=== PATIENT | male | born 1950 | race Caucasian/White ===

== ENCOUNTER 2022-04-29 17:05 | Emergency (ER) | payer MEDICARE, OTHER, SELFPAY ==
[2022-04-29 17:19] VITALS: BP 177/71; PULSE 77; RESP 16; TEMP 36.1; O2SAT 99; BMI 23.8
--- NOTE | 2022-04-29 17:31 | DI.CT.S_ITS ---
PROCEDURE: CT ABDOMEN PELVIS W CON INDICATIONS: LUQ/LLQ abd pain after injury 12 days ago TECHNIQUE: After the administration of IV contrast, axial sections were acquired from the lung bases to the pubic symphysis. Coronal and sagittal reformats were performed. For radiation dose reduction, the following was used: automated exposure control, adjustment of mA and/or kV according to patient size. COMPARISON: None. FINDINGS: Image quality: Excellent. Lung bases: Unremarkable. Heart: No significant findings. ABDOMEN: Liver: Small hypodensity near the gallbladder which has the appearance of a benign cyst. Gallbladder: Not distended. Biliary ducts: Unremarkable. Pancreas: Unremarkable. Spleen: No splenomegaly. Adrenal Glands: Unremarkable. Kidneys and Ureters: No hydronephrosis. Stomach and Bowel: No small bowel obstruction. There is prominent stool in the colon. A few colonic diverticuli. No diverticulitis identified. The appendix may be partially visualized and has air within its lumen. Stomach is not distended. Peritoneum: No abnormal intraperitoneal fluid. No free air. Ventral Wall: No hernia. Abdominal Nodes: No retroperitoneal or mesenteric adenopathy by size criteria. Vessels: Aorta and inferior vena cava are normal in size. Circumferential calcified atherosclerotic plaque. PELVIS: Pelvic Organs: Prostatomegaly. Vasectomy clips. Bladder: Possible bladder wall thickening. Irregularity at the dome of the bladder which could represent a diverticulum, (5/42). Pelvic Nodes: No enlarged lymph nodes. Miscellaneous: No inguinal hernias are seen. Bones: No compression fracture. No suspicious lesion. Multilevel DDD. IMPRESSION: 1. Prominent stool in the colon. This raises the possibility of constipation. 2. No free fluid is identified. No small bowel obstruction. 3. The appendix is likely partially visualized and does not appear dilated. 4. No hydronephrosis. 5. The bladder wall may be mildly thickened. Suspect bladder diverticulum at the dome. Prostatomegaly. Dictated by: Leeroy House M.D. on 04/29/2022 at 18:52 Approved by: Leeroy House M.D. on 04/29/2022 at 18:58
--- NOTE | 2022-04-29 17:45 | ED.LOWEXIN ---
HPI - Extremity Injury (Lower) <GEO Mueller - Last Filed: 04/29/22 20:35> General Chief Complaint: Extremity Injury, Lower Stated Complaint: Pain from hit, moving around body Time Seen by Provider: 04/29/22 17:39 Source: patient Mode of arrival: Ambulatory History of Present Illness HPI Narrative: This is a 71-year-old male who presents to the emergency department complaining of left-sided abdominal pain 12 days after hurt his left upper abdomen while leaning into his boat working on something. Patient endorses a history of peripheral neuropathy but states that he is had muscle cramps in his left upper thigh last night and it made it difficult for him to sleep. He states that he was lying on a ellison to his boat and he slid which had a protrusion which hurt his left upper abdomen. Patient also endorses low back pain with difficulty sleeping due to his restless left leg. He also endorses history of restless legs and neuropathy in the past. Patient denies any fever, nausea vomiting, worsening abdominal pain, denies any blood in his urine, stool, or other. Patient denies any weakness, is ambulatory, denies any significant abdominal pain, states that his pain travels into his left leg, it is dull, denies it being sharp but has difficulty explaining how it feels. Related Data Previous Rx's Medication Instructions Recorded ibuprofen 800 mg tablet 800 mg PO Q8H PRN pain #30 tabs 04/29/22 lidocaine 5 % topical patch 1 patch topical DAILY PRN pain #15 04/29/22 ea magnesium citrate 150 ml PO DAILY PRN constipation 04/29/22 #296 mL methocarbamol 500 mg tablet 500 mg PO TID PRN muscle spasm #14 04/29/22 tabs Allergies Allergy/AdvReac Type Severity Reaction Status Date / Time No Known Drug Allergies Allergy Verified 04/29/22 17:27 Review of Systems <GEO Mueller - Last Filed: 04/29/22 20:35> Review of Systems Narrative: Review of systems is negative for acute abnormalities unless otherwise noted in HPI Patient History <GEO Mueller - Last Filed: 04/29/22 20:35> tobacco type: vaping Substance Use Type: marijuana Exam <GEO Mueller - Last Filed: 04/29/22 20:35> Narrative Exam Narrative: Reviewed vitals signs and nursing notes. General: cooperative, comfortable, in no acute distress, well groomed HEENT: symmetrical facial expressions, moist mucous membranes Cardiovascular: regular rate and rhythm, no peripheral edema, warm extremities Respiratory: normal effort, able to speak in complete sentences, without wheezing, stridor, or abnormal breath sounds. No retractions or tachypnea. Symmetrical chest rise and fall, clear breath sounds throughout GI: abdomen soft, nontender to palpation, nondistended, without masses, rebound tenderness or exquisite tenderness with exam. No ecchymosis or hematoma MSK: moves all extremities, neurovascularly intact, no weakness, normal tone patient is ambulatory with steady gait, no weakness Skin: brisk capillary refill, without pallor or erythema Neuro: normal speech and cognition, A&O x3, ambulatory, clear speech Psych: mental status is grossly normal, congruent mood, normal affect, pleasant and cooperative Initial Vital Signs Initial Vital Signs: Vital Signs Temperature 97 F L 04/29/22 17:19 Pulse Rate 77 04/29/22 17:19 Respiratory Rate 16 04/29/22 17:19 Blood Pressure 177/71 H 04/29/22 17:19 Pulse Oximetry 99 04/29/22 17:19 Oxygen Delivery Method 04/29/22 17:19 <Yamini Jesus MD - Last Filed: 04/30/22 07:26> Initial Vital Signs Initial Vital Signs: Vital Signs Temperature 97 F L 04/29/22 17:19 Pulse Rate 77 04/29/22 17:19 Respiratory Rate 16 04/29/22 17:19 Blood Pressure 177/71 H 04/29/22 17:19 Pulse Oximetry 99 04/29/22 17:19 Oxygen Delivery Method 04/29/22 17:19 Course <GEO Mueller - Last Filed: 04/29/22 20:35> Orders Ordered: ED Orders 04/29/22 17:31 CT abdomen pelvis w con Stat EKG-12 Lead Stat 04/29/22 17:40 Complete Blood Count AUTO DIFF Stat Comprehensive Metabolic Panel Stat Lipase Stat Vital Signs Vital signs: Vital Signs - 8 hr 04/29/22 17:19 04/29/22 19:48 Temperature 97 F L Pulse Rate 77 64 Respiratory Rate 16 16 Blood Pressure 177/71 H 165/76 H Pulse Oximetry 99 Oxygen Delivery Method Room Air Room Air <Yamini Jesus MD - Last Filed: 04/30/22 07:26> Orders Ordered: ED Orders 04/29/22 17:31 CT abdomen pelvis w con Stat EKG-12 Lead Stat 04/29/22 17:40 Complete Blood Count AUTO DIFF Stat Comprehensive Metabolic Panel Stat Lipase Stat Vital Signs Vital signs: Vital Signs - 8 hr 04/29/22 17:19 04/29/22 19:48 Temperature 97 F L Pulse Rate 77 64 Respiratory Rate 16 16 Blood Pressure 177/71 H 165/76 H Pulse Oximetry 99 Oxygen Delivery Method Room Air Room Air MDM - Extremity Injury (Lower) <GEO Mueller - Last Filed: 04/29/22 20:35> Lab Data Result diagrams: 04/29/22 17:40 04/29/22 17:40 Labs: Lab Results 04/29/22 04/29/22 Range/Units 17:40 17:40 WBC 6.7 (4.5-11.0) X10^3/uL RBC 4.95 (4.5-5.9) X10^6/uL Hgb 14.2 (13.5-17.5) g/dL Hct 41.0 (41-53) % MCV 83.0 (80-100) fL MCH 28.7 (26-34) PG MCHC 34.6 (30-36) % RDW 13.8 (11.6-14.8) % Plt Count 251 (150-400) X10^3/uL Neut % (Auto) 56.5 (50-75) % Lymph % (Auto) 28.0 (25-40) % Archer % (Auto) 11.1 (3-14) % Eos % (Auto) 3.5 (2-4) % Baso % (Auto) 0.9 (0-2) % Neut # (Auto) 3800 (5226-7801) /uL Lymph # (Auto) 1900 (7111-3311) /uL Archer # (Auto) 700 (0-900) /uL Eos # (Auto) 200 (0-450) /uL Baso # (Auto) 100 (0-100) /uL Sodium 137 (137-145) mmol/L Potassium 4.3 (3.4-5.1) mmol/L Chloride 102 (98-107) mmol/L Carbon Dioxide 29 (22-32) mmol/L BUN 16 (9-20) mg/dL Creatinine 0.91 (0.66-1.25) mg/dL Estimated GFR > 60 (>60) mL/min BUN/Creatinine Ratio 17.6 (6-22) Glucose 85 (80-110) mg/dL Calcium 9.7 (8.4-10.2) mg/dL Total Bilirubin 0.7 (0.2-1.3) mg/dL AST 26 (17-59) IU/L ALT 17 (<50) IU/L Alkaline Phosphatase 78 (38-126) U/L Total Protein 8.0 (6.3-8.2) g/dL Albumin 4.6 (3.5-5.0) g/dL Globulin 3.4 (1.7-4.1) g/dL Albumin/Globulin Ratio 1.4 (1.0-2.8) Lipase 30 (23-300) U/L Urine Dip Bedside Urine Glucose Negative Bedside Urine Bilirubin - Negative Bedside Urine Ketone +/- 5 Urine Specific [place] 1.015 Bedside Urine Occult Blood - Negative Bedside Urine pH 6.0 Bedside Urine Protein - Negative Bedside Urine Urobilinogen - Negative Bedside Urine Nitrite - Negative Bedside Urine Leukocytes - Negative Esterase Imaging Data CT scan - abdomen/pelvis: Radiologist's Impression: PROCEDURE:? CT ABDOMEN PELVIS W CON ? INDICATIONS:? LUQ/LLQ abd pain after injury 12 days ago ? TECHNIQUE:? After the administration of IV contrast, axial sections were acquired from the lung bases to the pubic symphysis.? Coronal and sagittal reformats were performed.? For radiation dose reduction, the following was used:? automated exposure control, adjustment of mA and/or kV according to patient size. ? COMPARISON:? None. ? FINDINGS:? Image quality:? Excellent.? ? Lung bases:? Unremarkable.? ? Heart:? No significant findings. ? ? ABDOMEN: Liver:? Small hypodensity near the gallbladder which has the appearance of a benign cyst. ?? Gallbladder:? Not distended.? ? Biliary ducts:? Unremarkable.? ? Pancreas:? Unremarkable.? ? Spleen:? No splenomegaly.? ? Adrenal Glands:? Unremarkable.? ? Kidneys and Ureters:? No hydronephrosis. ? Stomach and Bowel:? No small bowel obstruction.? There is prominent stool in the colon.? A few colonic diverticuli.? No diverticulitis identified.? The appendix may be partially visualized and has air within its lumen.? Stomach is not distended. Peritoneum:? No abnormal intraperitoneal fluid.? No free air.? ? Ventral Wall: ? No hernia.? Abdominal Nodes:? No retroperitoneal or mesenteric adenopathy by size criteria.? Vessels:? Aorta and inferior vena cava are normal in size.? Circumferential calcified atherosclerotic plaque. ? PELVIS: Pelvic Organs:? Prostatomegaly.? Vasectomy clips.? Bladder:? Possible bladder wall thickening.? Irregularity at the dome of the bladder which could represent a diverticulum, ().? ? Pelvic Nodes: No enlarged lymph nodes.? Miscellaneous: No inguinal hernias are seen. ? ? ? Bones:? No compression fracture.? No suspicious lesion.? Multilevel DDD. ? ? IMPRESSION:? 1. Prominent stool in the colon.? This raises the possibility of constipation. ? 2. No free fluid is identified.? No small bowel obstruction. ? 3. The appendix is likely partially visualized and does not appear dilated. ? 4. No hydronephrosis. ? 5. The bladder wall may be mildly thickened.? Suspect bladder diverticulum at the dome.? Prostatomegaly.? ? Dictated by: Leeroy House M.D. on 04/29/2022 at 18:52 ? ? Approved by: Leeroy House M.D. on 04/29/2022 at 18:58 ? [facility] Narrative Medical decision making narrative: This is a 71-year-old male presents to the emergency department for left leg pain after he had a traumatic injury on his boat [address] abdomen and pelvis was obtained due to the abdominal injury he sustained 12 days ago but only shows prominent stool in the colon, no free fluid or small bowel obstruction, appendix is partially without dilation, no hydronephrosis or renal stones, bladder wall may be mildly thickened, suspect bladder diverticulum at the dome, prostatomegaly. Patient endorses history of BPH but denies any complications from this. Endorses a history of low back pain with sciatica and neuropathy in his lower extremities. CT bones shows no compression fracture or suspicious lesion, multilevel degenerative disc disease. After extensive discussion about cause to his symptom of left thigh pain, it is most likely to be sciatica without evidence muscle weakness, incontinence, cauda equina, acute vertebral fracture or malalignment, patient does not have any history of IV drug use. Opted to treat patient for low back pain with sciatica with muscle relaxers, anti-inflammatories, magnesium citrate for his constipation with MiraLax, and methocarbamol as needed for muscle spasms. Was also given a prescription of lidocaine patches. Given strict return precautions for returning. . Given history and exam, suspect likely musculoskeletal etiology, they are nontoxic appearing with no overt risk factors for epidural hematoma or abscess. No overt evidence of critical cord compression and has a nonfocal near exam. Neurovascularly intact distally, no evidence of infection, peritoneal signs, hypertensive crisis, or abdominal pain with low suspicion for AAA. No weakness, incontinence, neurovascular or sensation changes, no concerning findings for caudal equina syndrome, lumbar fracture, without paresthesia, neuropathic pain, meningeal signs and fever. This could be a herniated disk, paraspinal or other muscle strain, ligamental injury, arthritic, nephrolithiasis/pyelonephritis, epidural abscess, chronic pain, and other diagnosis? considered less likely. <Yamini Jesus MD - Last Filed: 04/30/22 07:26> Lab Data Labs: Lab Results 04/29/22 04/29/22 Range/Units 17:40 17:40 WBC 6.7 (4.5-11.0) X10^3/uL RBC 4.95 (4.5-5.9) X10^6/uL Hgb 14.2 (13.5-17.5) g/dL Hct 41.0 (41-53) % MCV 83.0 (80-100) fL MCH 28.7 (26-34) PG MCHC 34.6 (30-36) % RDW 13.8 (11.6-14.8) % Plt Count 251 (150-400) X10^3/uL Neut % (Auto) 56.5 (50-75) % Lymph % (Auto) 28.0 (25-40) % Archer % (Auto) 11.1 (3-14) % Eos % (Auto) 3.5 (2-4) % Baso % (Auto) 0.9 (0-2) % Neut # (Auto) 3800 (1061-8165) /uL Lymph # (Auto) 1900 (8293-4452) /uL Archer # (Auto) 700 (0-900) /uL Eos # (Auto) 200 (0-450) /uL Baso # (Auto) 100 (0-100) /uL Sodium 137 (137-145) mmol/L Potassium 4.3 (3.4-5.1) mmol/L Chloride 102 (98-107) mmol/L Carbon Dioxide 29 (22-32) mmol/L BUN 16 (9-20) mg/dL Creatinine 0.91 (0.66-1.25) mg/dL Estimated GFR > 60 (>60) mL/min BUN/Creatinine Ratio 17.6 (6-22) Glucose 85 (80-110) mg/dL Calcium 9.7 (8.4-10.2) mg/dL Total Bilirubin 0.7 (0.2-1.3) mg/dL AST 26 (17-59) IU/L ALT 17 (<50) IU/L Alkaline Phosphatase 78 (38-126) U/L Total Protein 8.0 (6.3-8.2) g/dL Albumin 4.6 (3.5-5.0) g/dL Globulin 3.4 (1.7-4.1) g/dL Albumin/Globulin Ratio 1.4 (1.0-2.8) Lipase 30 (23-300) U/L Urine Dip Bedside Urine Glucose Negative Bedside Urine Bilirubin - Negative Bedside Urine Ketone +/- 5 Urine Specific [place] 1.015 Bedside Urine Occult Blood - Negative Bedside Urine pH 6.0 Bedside Urine Protein - Negative Bedside Urine Urobilinogen - Negative Bedside Urine Nitrite - Negative Bedside Urine Leukocytes - Negative Esterase Discharge Plan Departure Patient Disposition: Home Clinical Impression: Degenerative disk disease Acute low back pain with sciatica Qualifiers: Back pain laterality: left Sciatica laterality: sciatica of left side Qualified Code(s): M54.42 - Lumbago with sciatica, left side Instructions: DI for Back Pain With Sciatica, DI for Muscle Spasm Activity Restrictions/Additional Instructions: *You have been diagnosed with left leg pain which is most likely irritated low back. We completed an extensive workup today wishes not show any abnormalities in your lab work, all of your organs are functioning normally. Your CT scan shows that you have moderate constipation, please continue taking MiraLax but increase it to twice a day and remember to stay hydrated. For your back pain/leg pain, these avoid over exertion, take ibuprofen 800 mg every 8 hours with food and water, you can take Tylenol in addition to this, you can take a muscle relaxer at nighttime to help with the spasms/restless symptom. Please use magnesium citrate once or 2 times to help rid your colon of the moderate constipation. I hope you start feeling better soon. Please return for any worsening, you may go to [facility] as needed if this is ongoing. Please use the walk-in clinic as needed for follow-up or for medication refills until you can get in with Dr. Flores in September. I encourage you to do physical therapy if this is helpful if your symptoms are ongoing. *What to do: *Please continue to take your regular medications as directed. [ x] New medication prescriptions sent to your pharmacy: [[facility] ] [ ] New medication written as a paper prescription [ ] No new medications given *Please follow up with your primary care provider in 2-3 days, call for an appointment. Let them know you were seen in the Emergency Department and that we asked that you be seen for follow-up. We will electronically transmit a record of today's note if your PCP is in our system *If you do not have a primary care provider please contact [phone] to establish care with one of the [facility] primary care providers. *Return to Emergency Department if you should have any new, worsening, or concerning symptoms, such as [fever greater than 101F, chills, worsening pain, persistent vomiting or other bothersome symptoms]. Prescriptions: New methocarbamol 500 mg tablet 500 mg PO TID PRN (Reason: muscle spasm) Qty: 14 0RF ibuprofen 800 mg tablet 800 mg PO Q8H PRN (Reason: pain) Qty: 30 0RF lidocaine 5 % adhesive patch,medicated 1 patch topical DAILY PRN (Reason: pain) Qty: 15 0RF Rx Instructions: leave on most painful area for up to 12 hrs magnesium citrate Solution 150 ml PO DAILY PRN (Reason: constipation) Qty: 296 0RF Referrals: Miscellaneous,Doctor[facility] [Primary Care Provider] - Visit Report Forms: Patient Portal/API <Yamini Jesus MD - Last Filed: 04/30/22 07:26> Cosign ED Attending Cosignature Attestation: I was immediately available in the department for consultation throughout this patient's visit. I agree with documentation as above. Yamini Jesus MD
--- NOTE | 2022-04-29 17:59 | PC.NURSE ---
12 days ago patient slid off [place] of boat hurting left ribs, upper abd. [place] like things may have been moving in the right direction until last night when he began to experience a sudden onset of left lower abd/groin and left leg pain Deep into the bone pain Unable to sleep or find any position of comfort. UPon waking noted some swelling in left leg which has since resolved.
[2022-04-29 18:03] LABS: Add Manual Diff / Slide Review NO; Basophils Absolute Auto 100 /uL (0-100); Basophils Percent Auto 0.9 % (0-2); Eosinophils Absolute Auto 200 /uL (0-450); Eosinophils Percent Auto 3.5 % (2-4); Hemoglobin 14.2 g/dL (13.5-17.5); Lymphocytes Absolute Auto 1900 /uL (1100-4500); Mean Corpuscular HGB Conc 34.6 % (30-36); Mean Corpuscular Hemoglobin 28.7 PG (26-34); Monocytes Absolute Auto 700 /uL (0-900); Monocytes Percent Auto 11.1 % (3-14); Neutrophils Absolute Auto 3800 /uL (1500-7000); Neutrophils Percent Auto 56.5 % (50-75); Platelet Count 251 X10^3/uL (150-400); Red Blood Cell Count 4.95 X10^6/uL (4.5-5.9); Red Cell Distribution Width 13.8 % (11.6-14.8); White Blood Cell Count 6.7 X10^3/uL (4.5-11.0)
[2022-04-29 18:19] LABS: Alanine Aminotransferase 17 IU/L (<50); Albumin 4.6 g/dL (3.5-5.0); Albumin Globulin Ratio 1.4 (1.0-2.8); Alkaline Phosphatase 78 U/L (38-126); Aspartate Aminotransferase 26 IU/L (17-59); BUN Creatinine Ratio 17.6 (6-22); Bilirubin Total 0.7 mg/dL (0.2-1.3); Blood Urea Nitrogen 16 mg/dL (9-20); Calcium 9.7 mg/dL (8.4-10.2); Carbon Dioxide 29 mmol/L (22-32); Chloride 102 mmol/L (98-107); Estimated Glomerular Filt Rate > 60 mL/min (>60); Globulin 3.4 g/dL (1.7-4.1); Glucose 85 mg/dL (80-110); HEMOLYSIS < 15 (0-50); Lipase 30 U/L (23-300); Potassium 4.3 mmol/L (3.4-5.1); Sodium 137 mmol/L (137-145)
[2022-04-29 19:48] VITALS: BP 165/76; PULSE 64; RESP 16
== END 2022-04-29 19:49 | disposition home or self-care (01) ==
PROVIDERS: Family Medicine Addiction Medicine; Emergency Provider Nurse Practitioner Critical Care Medicine
DX: M54.42 Lumbago with sciatica, left side (principal); M51.36 Other intervertebral disc degeneration, lumbar region
CPT/HCPCS: 36415; 74177; 80053; 81003; 83690; 85025; 93005; 99284; Q9967

== ENCOUNTER 2022-10-27 23:12 | Emergency (ER) | payer MEDICARE, OTHER, SELFPAY ==
[2022-10-28] VITALS (8 sets, daily range): BP systolic 149–199; BP diastolic 70–93; PULSE 79–95; RESP 18–28; TEMP 36.9; O2SAT 97–99; BMI 23.3
--- NOTE | 2022-10-28 01:29 | DI.RAD.S_ITS ---
PROCEDURE: XR CHEST 1V INDICATIONS: chest pain TECHNIQUE: One view of the chest was acquired. COMPARISON: None. FINDINGS: Surgical changes and devices: None. Lungs and pleura: Lungs are clear. No pleural effusions or pneumothorax. Mediastinum: Mediastinal contours appear normal. Heart size is normal. Bones and chest wall: No suspicious bony lesions. Overlying soft tissues appear unremarkable. IMPRESSION: 1. No acute cardiopulmonary disease. Dictated by: Shilo Moore M.D. on 10/28/2022 at 1:59 Approved by: Shilo Moore M.D. on 10/28/2022 at 2:00
--- NOTE | 2022-10-28 01:57 | ED_ITS ---
HPI - Weakness General Chief complaint: Weakness Stated complaint: light headed, skipping heart beats Time Seen by Provider: 10/27/22 23:43 Source: patient Mode of arrival: Ambulatory History of Present Illness HPI Narrative: 71-year-old male smoker with history of hypertension and hyperlipidemia presents with his in the chief complaint of palpitations that were rather bothersome that seemed to start soon after switching to a new nicotine based vaping oil. He states that he seems to be getting better but had a day and a half of palpitations and episodes of increased heart rate that made him feel very uneasy. He states that when these palpitations are occurring he feels some discomfort in his chest but denies any exertional component and states that he and his are quite active and he is had no change in his ability to tolerate exercise and has had no presence of symptoms with exertion. He is not dizzy nor weak or lightheaded. He denies any fever or chills. He has no nausea, vomiting or diarrhea Related Data Home Medications Medication Instructions Recorded Confirmed atorvastatin 10 mg tablet 10 mg PO DAILY 09/25/22 09/25/22 doxycycline hyclate 100 mg tablet 100 mg PO DAILY 09/25/22 09/25/22 lisinopril 10 mg tablet 10 mg PO DAILY 09/25/22 09/25/22 pantoprazole 20 mg tablet,delayed 20 mg PO DAILY 09/25/22 09/25/22 release Allergies Allergy/AdvReac Type Severity Reaction Status Date / Time No Known Drug Allergies Allergy Verified 09/25/22 16:41 Review of Systems Review of Systems Narrative: GENERAL: Denies chills, fatigue, malaise, fever, sweats. HEENT: Denies sinus pain, ear pain, sore throat, difficulty swallowing, dizziness. RESPIRATORY: Denies dyspnea, cough, wheezing, hemoptysis, sputum. CARDIOVASCULAR: See HPI GASTROINTESTINAL: Denies nausea, vomiting, abdominal pain, diarrhea, con stipation, melena. : Denies dysuria, frequency, incontinence, hematuria, urinary retention. MUSCULOSKELETAL: denies weakness, joint pain, or bony pain SKIN: Denies rash, skin lesions, or other NEUROLOGIC: Denies weakness, headache, numbness, change in speech, confusion, seizures, incoordination. PSYCHIATRIC: No concerning psychosocial issues. 12 point review of systems is negative except for those stated above Patient History Medical History Bilateral foot pain Cataracts, bilateral Fractures Hearing loss (~1998) HTN (hypertension) Hyperlipidemia Neuroma of foot Numbness and tingling of both feet Rosacea (~2011) Vision disorder Surgical History Anesthesia History of colonoscopy History of endoscopy History of inguinal hernia repair (~1978) Family History Father Liver cancer tobacco type: vaping Substance Use Type: marijuana Exam Narrative Exam Narrative: GENERAL: [71] year old patient appears stated age. Well-developed patient, in mild distress. HEAD: Atraumatic. Normocephalic. EYES: Pupils equal round and reactive. Extraocular motions intact. No scleral icterus. No injection or drainage. ENT: Nose without bleeding, purulent drainage. Throat without erythema, tonsillar hypertrophy or exudate. Airway patent. NECK: Trachea midline. Non tender CARDIOVASCULAR: Regular rate and rhythm without murmurs, gallops, or rubs. RESPIRATORY: Clear to auscultation. Breath sounds equal bilaterally. No wheezes, rales, or rhonchi. GASTROINTESTINAL: Abdomen soft, non-tender, nondistended. EXTREMITIES: No edema or joint tenderness. BACK: Nontender without deformity or crepitance. No flank tenderness. NEURO: AOx3. SKIN: No rash or erythema of visible areas Initial Vital Signs Initial Vital Signs: Vital Signs Temperature 98.4 F 10/28/22 00:18 Pulse Rate 92 H 10/28/22 00:18 Respiratory Rate 18 10/28/22 00:18 Blood Pressure 199/93 H 10/28/22 00:18 Pulse Oximetry 98 10/28/22 00:18 Oxygen Delivery Method Room Air 10/28/22 00:18 Scores HEART Score Heart Score history: Slightly Suspicious Heart Score EKG: Normal Heart Score Age: > or = 65 years old Heart Score risk factors: No known risk factors Heart Score troponin: < or = to normal limit Heart Score Total: 2 Course Orders Ordered: ED Orders 10/28/22 01:29 XR chest 1V Stat COVID19 -Nasal RAPID/Pre-Proc Stat Complete Blood Count AUTO DIFF Stat Comprehensive Metabolic Panel Stat Lipase Stat Magnesium Stat Troponin & CK Cardiac Panel Stat EKG-12 Lead Stat Vital Signs Vital signs: Vital Signs - 8 hr 10/28/22 00:18 Temperature 98.4 F Pulse Rate 92 H Respiratory Rate 18 Blood Pressure 199/93 H Pulse Oximetry 98 Oxygen Delivery Method Room Air MDM - Weakness Lab Data 10/28/22 01:50 10/28/22 01:50 Labs: Lab Results 10/28/22 10/28/22 Range/Units 01:50 01:50 WBC 9.6 (4.5-11.0) X10^3/uL RBC 4.65 (4.5-5.9) X10^6/uL Hgb 13.0 L (13.5-17.5) g/dL Hct 38.6 L (41-53) % MCV 83.2 (80-100) fL MCH 28.0 (26-34) PG MCHC 33.7 (30-36) % RDW 13.8 (11.6-14.8) % Plt Count 249 (150-400) X10^3/uL Neut % (Auto) 73.7 (50-75) % Lymph % (Auto) 16.4 L (25-40) % Russell % (Auto) 6.5 (3-14) % Eos % (Auto) 1.8 L (2-4) % Baso % (Auto) 1.6 (0-2) % Neut # (Auto) 7100 H (9115-2107) /uL Lymph # (Auto) 1600 (9885-8010) /uL Russell # (Auto) 600 (0-900) /uL Eos # (Auto) 200 (0-450) /uL Baso # (Auto) 200 H (0-100) /uL Sodium 137 (137-145) mmol/L Potassium 4.3 (3.4-5.1) mmol/L Chloride 105 (98-107) mmol/L Carbon Dioxide 25 (22-32) mmol/L BUN 19 (9-20) mg/dL Creatinine 0.81 (0.66-1.25) mg/dL Estimated GFR > 60 (>60) mL/min BUN/Creatinine Ratio 23.5 H (6-22) Glucose 93 (80-110) mg/dL Calcium 9.0 (8.4-10.2) mg/dL Magnesium 1.9 (1.6-2.3) mg/dL Total Bilirubin 0.4 (0.2-1.3) mg/dL AST 30 (17-59) IU/L ALT 25 (<50) IU/L Alkaline Phosphatase 86 (38-126) U/L Total Creatine Kinase 96 (55-170) U/L CK-MB (CK-2) TNP CK-MB (CK-2) Rel Index TNP Troponin I < 0.012 (0.01-0.034) ng/mL Total Protein 7.0 (6.3-8.2) g/dL Albumin 4.0 (3.5-5.0) g/dL Globulin 3.0 (1.7-4.1) g/dL Albumin/Globulin Ratio 1.3 (1.0-2.8) Lipase 68 (23-300) U/L MDM Narrative Medical decision making narrative: CC: 71-year-old male with palpitations after a new nicotine based vapes oil Complicating co-morbidities: Age, hypertension and hyperlipidemia Data collected from: Patient Medical records reviewed: Prior notes reviewed in our EMR Differential considered, but not limited to: Palpitations due to PVCs, SVT, AFib versus cardiac ischemia versus other Exam documented above, pertinent findings include: Heart rate regular, no labored breathing, clear lung sounds Lab Test results independently reviewed as above. Pertinent findings: Independently reviewed EKG as above Imaging studies independently reviewed: Chest x-ray clear Scores Used: HEART Re-evaluations: Patient with only the occasional PVC during the duration of the visit. Discussion: Patient complains of skipping beats and palpitations. He is found to have the occasional PVC over the duration of his visit. No significant abnormalities in the blood work that would require a specific or immediate intervention. No tachyarrhythmias that require specific treatment or inte rvention. Patient safe and appropriate for discharge and close follow-up Disposition: see below, along with detailed discharge instructions that have been reviewed with patient as well as indications for ED re-evaluation and additional outpatient follow up Discharge Plan Departure Patient Disposition: Home Clinical Impression: HTN (hypertension), History of palpitations Instructions: High Blood Pressure, DI for Palpitations Activity Restrictions/Additional Instructions: *You have been diagnosed with [palpitations and hypertension ] *What to do: *Please continue to take your regular medications as directed. *Please follow up with your primary care provider in 2-3 days, call for an appointment. Let them know you were seen in the Emergency Department and that we ask that you be seen in follow up. We will electronically transmit a record of today's note if your PCP is in our system *If you do not have a primary care provider please contact the [facility] Resource line at [phone]. They will ask some questions about your medical history and help get you set up with a doctor in the community. *Return to Emergency Department if you should have any new, worsening or concerning symptoms, such as [fever greater than 101 F, shaking chills, worsening pain, persistent vomiting or other bothersome symptoms] Prescriptions: No Action pantoprazole 20 mg tablet,delayed release (DR/EC) 20 mg PO DAILY atorvastatin 10 mg tablet 10 mg PO DAILY lisinopril 10 mg tablet 10 mg PO DAILY doxycycline hyclate 100 mg tablet 100 mg PO DAILY Referrals: Cachorro Murguia DO [Primary Care Provider] - Stand Alone Forms: Patient Portal/API
[2022-10-28 02:10] LABS: Add Manual Diff / Slide Review NO; Basophils Absolute Auto 200 /uL (0-100); Basophils Percent Auto 1.6 % (0-2); Eosinophils Absolute Auto 200 /uL (0-450); Eosinophils Percent Auto 1.8 % (2-4); Hematocrit 38.6 % (41-53); Lymphocytes Absolute Auto 1600 /uL (1100-4500); Lymphocytes Percent Auto 16.4 % (25-40); Mean Corpuscular HGB Conc 33.7 % (30-36); Mean Corpuscular Volume 83.2 fL (80-100); Monocytes Absolute Auto 600 /uL (0-900); Monocytes Percent Auto 6.5 % (3-14); Neutrophils Absolute Auto 7100 /uL (1500-7000); Neutrophils Percent Auto 73.7 % (50-75); Platelet Count 249 X10^3/uL (150-400); Red Blood Cell Count 4.65 X10^6/uL (4.5-5.9); Red Cell Distribution Width 13.8 % (11.6-14.8); White Blood Cell Count 9.6 X10^3/uL (4.5-11.0)
[2022-10-28 02:20] LABS: Alanine Aminotransferase 25 IU/L (<50); Albumin Globulin Ratio 1.3 (1.0-2.8); Alkaline Phosphatase 86 U/L (38-126); Aspartate Aminotransferase 30 IU/L (17-59); BUN Creatinine Ratio 23.5 (6-22); Bilirubin Total 0.4 mg/dL (0.2-1.3); Blood Urea Nitrogen 19 mg/dL (9-20); Carbon Dioxide 25 mmol/L (22-32); Chloride 105 mmol/L (98-107); Creatine Kinase 96 U/L (55-170); Estimated Glomerular Filt Rate > 60 mL/min (>60); Glucose 93 mg/dL (80-110); HEMOLYSIS 27 (0-50); Lipase 68 U/L (23-300); Magnesium 1.9 mg/dL (1.6-2.3); Potassium 4.3 mmol/L (3.4-5.1); Sodium 137 mmol/L (137-145)
[2022-10-28 02:31] LABS: Troponin I < 0.012 ng/mL (0.01-0.034)
== END 2022-10-28 02:59 | disposition home or self-care (01) ==
PROVIDERS: Emergency Provider Emergency Medicine; PCP Family Medicine
DX: I10 Essential (primary) hypertension (principal); R00.2 Palpitations; R07.9 Chest pain, unspecified
CPT/HCPCS: 36415; 71045; 80053; 82550; 83690; 83735; 84484; 85025; 93005; 99283; 99284

== ENCOUNTER → 2022-10-28 15:33 | Outpatient (CLI) | payer MEDICARE, OTHER, SELFPAY ==
[2022-10-28 16:06] LABS: Add Manual Diff / Slide Review NO; Basophils Absolute Auto 0 /uL (0-100); Basophils Percent Auto 0.4 % (0-2); Eosinophils Absolute Auto 100 /uL (0-450); Eosinophils Percent Auto 0.8 % (2-4); Hematocrit 40.3 % (41-53); Lymphocytes Absolute Auto 1900 /uL (1100-4500); Lymphocytes Percent Auto 21.2 % (25-40); Mean Corpuscular HGB Conc 34.6 % (30-36); Mean Corpuscular Hemoglobin 28.6 PG (26-34); Mean Corpuscular Volume 82.7 fL (80-100); Monocytes Absolute Auto 800 /uL (0-900); Monocytes Percent Auto 9.1 % (3-14); Neutrophils Absolute Auto 6200 /uL (1500-7000); Neutrophils Percent Auto 68.5 % (50-75); Platelet Count 269 X10^3/uL (150-400); Red Blood Cell Count 4.87 X10^6/uL (4.5-5.9); Red Cell Distribution Width 13.8 % (11.6-14.8); White Blood Cell Count 9.1 X10^3/uL (4.5-11.0)
[2022-10-28 16:37] LABS: Alanine Aminotransferase 27 IU/L (<50); Albumin 4.5 g/dL (3.5-5.0); Albumin Globulin Ratio 1.4 (1.0-2.8); Alkaline Phosphatase 82 U/L (38-126); Aspartate Aminotransferase 29 IU/L (17-59); Bilirubin Total 0.6 mg/dL (0.2-1.3); Blood Urea Nitrogen 16 mg/dL (9-20); Calcium 9.7 mg/dL (8.4-10.2); Carbon Dioxide 26 mmol/L (22-32); Chloride 100 mmol/L (98-107); Cholesterol 173 mg/dL (140-199); Estimated Glomerular Filt Rate > 60 mL/min (>60); Globulin 3.2 g/dL (1.7-4.1); Glucose 100 mg/dL (80-110); HDL Cholesterol 76 mg/dL (40-60); HEMOLYSIS < 15 (0-50); LDL Cholesterol Calculated 85 mg/dL (<100); Potassium 4.4 mmol/L (3.4-5.1); Sodium 136 mmol/L (137-145); Total Protein 7.7 g/dL (6.3-8.2); Triglycerides 61 mg/dL (35-150)
[2022-10-28 17:08] LABS: Prostate Specific Antigen Scrn 7.02 ng/mL (0.1-4.0)
== END ==
PROVIDERS: PCP Family Medicine; Referring Provider Family Medicine; Visit Provider Family Medicine
DX: E78.5 Hyperlipidemia, unspecified (principal); Z12.5 Encounter for screening for malignant neoplasm of prostate; I10 Essential (primary) hypertension
CPT/HCPCS: 36415; 80053; 80061; 85025; G0103

== ENCOUNTER → 2023-01-31 14:00 | Outpatient (CLI) | payer MEDICARE, OTHER, SELFPAY ==
--- NOTE | 2023-01-31 | DI.MRI.S_ITS ---
PROCEDURE: MR PELIS WO/W CON INDICATIONS: ABNORMAL PROSTATE BY PALPATION TECHNIQUE: Coronal HASTE, axial T1 FSE with fat saturation, 3-plane nonbreath-hold T2 FSE. After the administration of contrast, dynamic axial, delayed axial and coronal VIBE or 2-D FLASH with fat saturation through the pelvis. Optional diffusion weighted imaging and ADC may be performed. COMPARISON: None. FINDINGS: Image quality: Diffusion weighted and dynamic contrast enhanced images are diagnostic. Prostate: Gland size is 5.8 x 5.0 x 5.3 cm; ellipsoid gland volume is 80 mL. Lesion 1: Location: Left lateral peripheral zone, mid gland. This is best seen on series 5, image 15 and series 6, image 16. Size: 0.5 x 0.6 cm T2 signal: Moderately hypointense DWI: Markedly hyperintense ADC: Markedly hypointense Enhancement: Positive Extracapsular extension: No PI-RADS score: 4 Genitourinary system: Bladder wall thickness is normal. Distal ureters are non distended. Trabeculated bladder wall, with bladder diverticula, consistent with chronic outlet obstruction. Bowel and peritoneum: No pathologic free pelvic fluid. Inferior colon and small bowel loops are normal in caliber. Nodes and vessels: No pelvic or inguinal adenopathy by size criteria. Iliac vessels are normal in caliber. Soft tissues: No inguinal hernias. Bones: Marrow demonstrates normal overall signal, without lesions to suggest metastases. IMPRESSION: PI-RADS 4 lesion in the left mid gland of the lateral peripheral zone. No suspicious pelvic chain lymph nodes. No aggressive osseous abnormality. Trabeculated bladder wall, most consistent with chronic outlet obstruction. Dictated by: Luke Alan M.D. on 01/31/2023 at 15:14 Approved by: Luke Alan M.D. on 01/31/2023 at 15:18
== END ==
PROVIDERS: PCP Family Medicine; Referring Provider Urology; Visit Provider Urology
DX: N42.9 Disorder of prostate, unspecified (principal)
CPT/HCPCS: 72197; A9579

== ENCOUNTER → 2023-02-06 13:30 | Outpatient (CLI) | payer MEDICARE, OTHER, SELFPAY | PROVIDERS: PCP Family Medicine; Visit Provider Urology | DX: N42.9 Disorder of prostate, unspecified (principal); R39.9 Unspecified symptoms and signs involving the genitourinary system; R97.20 Elevated prostate specific antigen [PSA]; Z87.891 Personal history of nicotine dependence | CPT/HCPCS: 81002; 87086; 99213 ==

== ENCOUNTER → 2023-05-22 16:25 | Outpatient (CLI) | payer MEDICARE, OTHER, SELFPAY ==
[2023-05-25 09:06] LABS: PSA Free % 18.7 % (.); PSA, Total 6.8 ng/mL (0.0-4.0)
== END ==
PROVIDERS: PCP Family Medicine; Referring Provider Urology; Visit Provider Urology
DX: R97.20 Elevated prostate specific antigen [PSA] (principal)
CPT/HCPCS: 36415; 84153; 84154

== ENCOUNTER 2023-06-16 12:18 | Observation (INO) | payer MEDICARE, OTHER, SELFPAY ==
[2023-06-16] VITALS (16 sets, daily range): BP systolic 153–223; BP diastolic 76–105; PULSE 70–87; RESP 10–20; TEMP 36.4–36.9; O2SAT 97–100; BMI 23.3; BMI 22.7
--- NOTE | 2023-06-16 12:48 | DI.RAD.S_ITS ---
PROCEDURE: XR CHEST 1V INDICATIONS: chest pain TECHNIQUE: One view of the chest was acquired. COMPARISON: [facility], CR, XR CHEST 1V, 10/28/2022, 1:30. FINDINGS: Surgical changes and devices: None. Lungs and pleura: Lungs are clear. No pleural effusions or pneumothorax. Mediastinum: Mediastinal contours appear normal. Heart size is normal. Bones and chest wall: No suspicious bony lesions. Overlying soft tissues appear unremarkable. IMPRESSION: No evidence acute pulmonary process. Dictated by: Renato Fernandez M.D. on 06/16/2023 at 13:50 Approved by: Renato Fernandez M.D. on 06/16/2023 at 13:50
[2023-06-16] MEDS: ASPIRIN 81 MG CHEW TAB 324 MG PO (12:51)
[2023-06-16 13:23] LABS: Add Manual Diff / Slide Review NO; Basophils Absolute Auto 0 /uL (0-100); Basophils Percent Auto 0.6 % (0-2); Eosinophils Absolute Auto 100 /uL (0-450); Eosinophils Percent Auto 1.6 % (2-4); Hematocrit 36.6 % (41-53); Hemoglobin 12.7 g/dL (13.5-17.5); Lymphocytes Absolute Auto 1100 /uL (1100-4500); Lymphocytes Percent Auto 16.5 % (25-40); Mean Corpuscular HGB Conc 34.7 % (30-36); Mean Corpuscular Hemoglobin 28.6 PG (26-34); Mean Corpuscular Volume 82.3 fL (80-100); Monocytes Absolute Auto 700 /uL (0-900); Monocytes Percent Auto 11.1 % (3-14); Neutrophils Absolute Auto 4700 /uL (1500-7000); Neutrophils Percent Auto 70.2 % (50-75); Platelet Count 264 X10^3/uL (150-400); Red Blood Cell Count 4.44 X10^6/uL (4.5-5.9); Red Cell Distribution Width 13.4 % (11.6-14.8); White Blood Cell Count 6.7 X10^3/uL (4.5-11.0)
[2023-06-16 13:29] LABS: Prothrombin Time 11.7 SECONDS (10.1-12.7)
[2023-06-16 13:31] LABS: PTT Partial Thromboplastin Tim 31 SECONDS (26-36)
[2023-06-16 13:34] LABS: Alanine Aminotransferase 19 IU/L (<50); Albumin 4.2 g/dL (3.5-5.0); Albumin Globulin Ratio 1.4 (1.0-2.8); Alkaline Phosphatase 75 U/L (38-126); Aspartate Aminotransferase 26 IU/L (17-59); BUN Creatinine Ratio 17.7 (6-22); Bilirubin Total 0.3 mg/dL (0.2-1.3); Blood Urea Nitrogen 14 mg/dL (9-20); Calcium 9.8 mg/dL (8.4-10.2); Carbon Dioxide 26 mmol/L (22-32); Chloride 97 mmol/L (98-107); Creatine Kinase 78 U/L (55-170); Estimated Glomerular Filt Rate > 60 mL/min (>60); Globulin 2.9 g/dL (1.7-4.1); Glucose 108 mg/dL (80-110); HEMOLYSIS < 15 (0-50); Lipase 74 U/L (23-300); Sodium 130 mmol/L (137-145); Total Protein 7.1 g/dL (6.3-8.2)
[2023-06-16 13:45] LABS: Troponin I < 0.012 ng/mL (0.01-0.034)
[2023-06-16 16:38] LABS: Troponin I < 0.012 ng/mL (0.01-0.034)
--- NOTE | 2023-06-16 18:11 | ED_ITS ---
HPI - Arrhythmia/Palpitations General Chief Complaint: Arrhythmia/Palpitations Stated Complaint: heart slowed down T-1/nausea Time Seen by Provider: 06/16/23 17:22 Source: patient Mode of arrival: Ambulatory History of Present Illness HPI narrative: 72-year-old gentleman with a history of hypertension, hyperlipidemia, reflux, occasional constipation describes an episode with some sort of physical event that awoke his who leaned over to check on him. He was reportedly hard to arouse but within seconds was clearly awakened from sleep, he checked his own heart rate and felt that it was very slow, he complained of weakness, diaphoresis, dyspnea that spontaneously resolved over the next 15 minutes. He fell asleep again after that and comes into the emergency department for further evaluation. He states he is otherwise been in his usual state of excellent health. He is never had any cardiac events there is no history of seizure stroke. No recent fever, cough, chills. He states that he is felt ?off all day?. He is not able to be more specific in symptomatic complaints. He does note that his heart rate has consistently been in the 70s to 80s as he has been checking while awake during the day today Related Data Home Medications Medication Instructions Recorded Confirmed lisinopril 30 mg tablet 30 mg PO BEDTIME 02/12/23 06/16/23 doxycycline hyclate 100 mg tablet 100 mg PO DAILY 06/16/23 06/16/23 Previous Rx's Medication Instructions Recorded atorvastatin 10 mg tablet 10 mg PO DAILY #90 tabs 12/18/22 pantoprazole 20 mg tablet,delayed 20 mg PO DAILY #90 tabs 12/18/22 release Allergies Allergy/AdvReac Type Severity Reaction Status Date / Time No Known Drug Allergies Allergy Verified 06/16/23 12:47 Review of Systems Review of Systems Narrative: Pertinent positive and negative findings as per HPI Patient History Medical History (Updated 06/16/23 @ 22:14 by Peng Lama MD) Chronic prostatitis Benign prostatic hyperplasia History of tobacco use Lower urinary tract symptoms Abnormal prostate by palpation Vaping nicotine dependence, non-tobacco product Elevated PSA Vision disorder Rosacea (~2011) Fractures Hearing loss (~1998) Cataracts, bilateral HTN (hypertension) Hyperlipidemia Neuroma of foot Bilateral foot pain Numbness and tingling of both feet Surgical History Anesthesia History of inguinal hernia repair (~1978) History of endoscopy History of colonoscopy Family History Father Liver cancer Mother Cancer Sister Cancer Grandmother CVA (cerebral vascular accident) Social History marital status: number of children: 3 household members: significant other occupational status: other Smoking Status: Current every day smoker alcohol intake: never caffeine: Yes Type(s) of exercise: walking and other frequency: daily Smoking Status: Current every day smoker tobacco type: vaping alcohol intake frequency: 0-2 drinks per day Substance Use Type: marijuana Exam Initial Vital Signs Initial Vital Signs: Vital Signs Temperature 98.5 F 06/16/23 12:41 Pulse Rate 76 06/16/23 12:41 Respiratory Rate 18 06/16/23 12:41 Blood Pressure 159/76 H 06/16/23 12:41 Pulse Oximetry 100 06/16/23 12:41 Oxygen Delivery Method Room Air 06/16/23 12:41 General: Healthy appearing, in no acute distress. Able to give a complete and coherent history. Well-nourished well-developed HEENT: Moist mucous membranes, normal sclera with reactive pupils, Neck: No JVD, supple Respiratory: Lungs are clear to auscultation, no wheezing no rales no rhonchi. Full and symmetrical air movement Cardiac: Regular rate and rhythm no murmurs no bruits Abdomen: Soft, nontender, good bowel tones, no flank pain Skin: Warm and dry, no rashes Neurologic: Grossly neurologically intact with no obvious asymmetries or abnormalities Extremities: No trauma, well perfused Psych: Cooperative, appropriate insight and affect Course Orders Ordered: ED Orders 06/16/23 18:34 CT head/brain wo con Stat 06/16/23 19:43 Education, smoking cessation ONGOING 06/16/23 19:47 EC echo doppler complete Urgent 06/17/23 07:00 Comprehensive Metabolic Panel DAILY Magnesium DAILY Troponin I Stat Acetaminophen (Acetaminophen 325 Mg Tablet) 650 mg PO Q6H PRN PRN Reason: Fever/Mild Pain (1-3) Last Admin: 06/16/23 23:01 Dose: 650 mg Documented By: MS Hydrocodone Bitart/Acetaminophen (Hydrocodone/Acet 5/325 Tablet) 1 tab PO Q4H PRN PRN Reason: Pain, Moderate (4-6) Albuterol (Albuterol 2.5 Mg/3 Ml Neb (Adult)) 2.5 mg INH [id number] PRN PRN Reason: Dyspnea Aspirin (Aspirin Ec 81 Mg Tablet) 81 mg PO DAILY [facility] Atorvastatin Calcium (Atorvastatin 20 Mg Tablet) 10 mg PO DAILY [facility] Calcium Carbonate (Calcium Carbonate 500 Mg Tab) 1,000 mg PO Q4HR PRN PRN Reason: Dyspepsia Hydralazine HCl (Hydralazine 25 Mg Tablet) 25 mg PO Q6HR PRN PRN Reason: SBP >160 Lisinopril (Lisinopril 10 Mg Tablet) 30 mg PO BEDTIME [facility] Last Admin: 06/16/23 22:29 Dose: Not Given Documented By: Melatonin (Melatonin 3 Mg Tablet) 9 mg PO BEDTIME PRN PRN Reason: insomnia Naloxone HCl (Naloxone 0.4 Mg/Ml Vial) 0.2 mg IV Q2MIN PRN PRN Reason: Opiate Reversal Ondansetron HCl (Ondansetron 4 Mg/2 Ml Inj) 4 mg IV Q8HR PRN PRN Reason: Nausea And Vomiting Pantoprazole Sodium (Pantoprazole Dr 20 Mg Tablet) 20 mg PO DAILY [facility] Sodium Chloride (Sodium Chloride 0.9% Flush) 10 ml IV BID [facility] Last Admin: 06/16/23 23:02 Dose: 10 ml Documented By: Sodium Chloride (Sodium Chloride 0.9% Flush) 10 ml IV PRN PRN PRN Reason: Flush Discontinued Medications Aspirin (Aspirin 81 Mg Chew Tab) 324 mg PO NOW ONE Stop: 06/16/23 12:49 Last Admin: 06/16/23 12:51 Dose: 324 mg Documented By: ADIEL Lisinopril (Lisinopril 10 Mg Tablet) 30 mg PO NOW ONE Stop: 06/16/23 18:55 Last Admin: 06/16/23 19:09 Dose: 30 mg Documented By: TAMRA Vital Signs Vital signs: Vital Signs - 8 hr 06/16/23 19:02 06/16/23 19:09 06/16/23 19:29 Pulse Rate 75 77 73 Respiratory Rate 10 L Blood Pressure 173/84 H Pulse Oximetry 100 100 Oxygen Delivery Method Room Air 06/16/23 19:29 06/16/23 19:30 06/16/23 19:30 Pulse Rate 72 Respiratory Rate Blood Pressure 171/77 H 168/82 H Pulse Oximetry 100 Oxygen Delivery Method 06/16/23 20:00 06/16/23 20:01 06/16/23 20:01 Pulse Rate 81 77 Respiratory Rate Blood Pressure 202/81 H Pulse Oximetry 97 100 Oxygen Delivery Method MDM - Arrhythmia/Palpitations Lab Data 06/16/23 12:55 06/16/23 12:55 Labs: Lab Results 06/16/23 06/16/23 Range/Units 12:55 16:06 WBC 6.7 (4.5-11.0) X10^3/uL RBC 4.44 L (4.5-5.9) X10^6/uL Hgb 12.7 L (13.5-17.5) g/dL Hct 36.6 L (41-53) % MCV 82.3 (80-100) fL MCH 28.6 (26-34) PG MCHC 34.7 (30-36) % RDW 13.4 (11.6-14.8) % Plt Count 264 (150-400) X10^3/uL Neut % (Auto) 70.2 (50-75) % Lymph % (Auto) 16.5 L (25-40) % Morrow % (Auto) 11.1 (3-14) % Eos % (Auto) 1.6 L (2-4) % Baso % (Auto) 0.6 (0-2) % Neut # (Auto) 4700 (8937-5580) /uL Lymph # (Auto) 1100 (3481-2250) /uL Morrow # (Auto) 700 (0-900) /uL Eos # (Auto) 100 (0-450) /uL Baso # (Auto) 0 (0-100) /uL PT 11.7 (10.1-12.7) SECONDS INR 1.0 (0.9-1.3) APTT 31 (26-36) SECONDS Sodium 130 L (137-145) mmol/L Potassium 5.0 (3.4-5.1) mmol/L Chloride 97 L (98-107) mmol/L Carbon Dioxide 26 (22-32) mmol/L BUN 14 (9-20) mg/dL Creatinine 0.79 (0.66-1.25) mg/dL Estimated GFR > 60 (>60) mL/min BUN/Creatinine Ratio 17.7 (6-22) Glucose 108 (80-110) mg/dL Calcium 9.8 (8.4-10.2) mg/dL Magnesium 2.0 (1.6-2.3) mg/dL Total Bilirubin 0.3 (0.2-1.3) mg/dL AST 26 (17-59) IU/L ALT 19 (<50) IU/L Alkaline Phosphatase 75 (38-126) U/L Total Creatine Kinase 78 (55-170) U/L Troponin I < 0.012 < 0.012 (0.01-0.034) ng/mL Total Protein 7.1 (6.3-8.2) g/dL Albumin 4.2 (3.5-5.0) g/dL Globulin 2.9 (1.7-4.1) g/dL Albumin/Globulin Ratio 1.4 (1.0-2.8) Triglycerides 96 (35-150) mg/dL Cholesterol 160 (140-199) mg/dL LDL Cholesterol, Calc 80 (<100) mg/dL HDL Cholesterol 61 H (40-60) mg/dL Lipase 74 (23-300) U/L TSH 0.571 (0.47-4.68) uIU/mL MDM Narrative Medical decision making narrative: CC: 15 minute episode concerning for symptomatic bradycardia this morning at 4:00 a.m. Complicating co-morbidities: Hypertension, hyperlipidemia, prostatitis and BPH issues Data collected from: patient, Medical records reviewed: Family practice notes from October of 2022 are reviewed Differential considered: Symptomatic bradycardic episodes such as third-degree heart block, seizure, acute coronary syndrome Exam documented above, pertinent findings include: Completely benign exam Lab Test results independently reviewed as above. Pertinent findings: CBC is unremarkable mild anemia at 12.7 and 36.6\ Chemistries are reassuring with no electrolyte abnormalities and appropriate renal function Initial troponin and repeat at 2:00 a.m. are both undetectable Independently reviewed EKG EKG shows sinus rhythm at a rate of 71 with normal intervals, normal axis and no acute ischemic changes Imaging studies independently reviewed: Chest x-ray is unremarkable Consultations: Dr. Johnson, cardiology is recommendation is admitted overnight with telemetry, echocardiogram in the morning and set him up with a Zio patch followed by cardiology follow-up Discussion with Dr. Lama, admitting hospitalist. Accepts the patien Discussion: 72-year-old gentleman with a history of hypertension hyperlipidemia with some sort of event this morning where he felt his heart rate was dramatically slow with rather impressive cardiac complaints such as diaphoresis weakness dyspnea slight pain. No seizure like activity reported by his and no prior seizures appreciated. Remainder of workup is entirely unremarkable with no evidence of acute coronary syndrome, infection, volume overload and a completely normal both cardiac and neurologic exam. Reviewed Cardiology recommendations and will speak with the hospitalist about admitting this gentleman for the evening Discharge Plan Departure Patient Disposition: Admitted as Observation Clinical Impression: Symptomatic bradycardia Admit Date/Time: 06/16/23 20:21 Admit Provider: Peng Lama
--- NOTE | 2023-06-16 18:34 | DI.CT.S_ITS ---
PROCEDURE: CT HEAD/BRAIN WO CON INDICATIONS: acute event with loss of consciousness TECHNIQUE: Noncontrast 4.5 mm thick angled axial sections acquired from the foramen magnum to the vertex, with coronal and sagittal reformats. For radiation dose reduction, the following was used: automated exposure control, adjustment of mA and/or kV according to patient size. COMPARISON: None. FINDINGS: Image quality: Excellent. CSF spaces: Basal cisterns are patent. No extra-axial fluid collections. The ventricles are symmetric in size and shape. Brain: No intracranial bleeds or masses. There is cerebral volume loss for age, with resultant ventricular and sulcal prominence. There are periventricular and deep white matter chronic small vessel ischemic changes. There is intracranial internal carotid artery atherosclerosis. Skull and face: Calvarium and visualized facial bones appear intact, without suspicious lesions. Sinuses: Visualized sinuses and mastoids are clear. IMPRESSION: No acute intracranial abnormalities. Dictated by: Jonathan Galvez M.D. on 06/16/2023 at 19:58 Approved by: Jonathan Galvez M.D. on 06/16/2023 at 19:59
[2023-06-16] MEDS: lisinopriL 10 MG TABLET 30 MG PO (19:09)
--- NOTE | 2023-06-16 19:30 | PC.NURSE ---
pt aao x 3 ambulatory to bathroom, gait steady, denies any c/p, or dizziness at this time
--- NOTE | 2023-06-16 19:47 | DI.ECHO.S_ITS ---
[place] [facility]---------+ [facility] +---------+ : : [address] : : : : [id number] : : : : Phone: [phone]+ Echocardiogram Report + + :Name: SHELLIE CABRALES Study Date: 06/17/2023 Height: 66 in : :[facility] ReadingLocation: Weight: 145 lb : : Gender: Male BSA: 1.7 m2 : :: 1950 Age: 72 yrs BP: 144/71 mmHg: :Reason For Study: CONGESTIVE HEART FAILURE EXACERBATION : :Ordering Physician: ARMINDA, : :PHYLLIS Performed By: Bridget Grullon : :Referring: PHYLLIS HILLIARD : + + Interpretation Summary The ejection fraction is estimated to be 60-65%. Diastolic parameters suggest probable normal left ventricular diastolic function and normal filling pressures. The right ventricle is borderline dilated. The right ventricular systolic function is normal. Pulmonary artery pressures cannot be estimated because of the lack of a measurable TR jet velocity but the IVC suggests a CVP of around 3 mmHg. Procedure: A two-dimensional transthoracic echocardiogram with color flow and Doppler was performed. The study quality was technically adequate. There is no prior echocardiogram noted for this patient. The patient was in sinus rhythm with heart rates between 55-75 bpm during the exam. Left Ventricle: The left ventricle is normal in size and wall thickness. The ejection fraction is estimated to be 60-65%. Diastolic parameters suggest probable normal left ventricular diastolic function and normal filling pressures. Right Ventricle: The right ventricle is borderline dilated. The right ventricular systolic function is normal. Atria: The left atrial size is normal. Right atrial size is normal. There is no Doppler evidence for an interatrial shunt. Mitral Valve: The mitral valve is normal in structure and function. There is trace mitral regurgitation. Aortic Valve: The aortic valve is trileaflet. The aortic valve opens well. There is no aortic valve stenosis. No aortic regurgitation is present. Tricuspid Valve: The tricuspid valve is normal in structure and function. There is a trace or physiologic amount of tricuspid regurgitation. Pulmonary artery pressures cannot be estimated because of the lack of a measurable TR jet velocity but the IVC suggests a CVP of around 3 mmHg. Pulmonic Valve: The pulmonic valve leaflets are thin and pliable; valve motion is normal. There is mild pulmonic regurgitation. Great Vessels: The aortic root is normal size. The dimensions of the ascending aorta are normal. The IVC is of normal diameter and collapses greater than 50% with a sniff. This suggests a low right atrial pressure of 3 mm Hg. Pericardium/ Pleura There is no pericardial effusion. There is no pleural effusion. MMode/2D Measurements & Calculations LVIDd: 5.0 cm LVOT diam: 2.0 cm LVIDs: 3.0 cm Ao root diam: 3.0 cm FS: 39.5 % asc Aorta Diam: 3.1 cm IVSd: 1.0 cm Ao Arch Diam (Prox Trans): 2.4 cm LVPWd: 0.86 cm LV mejias. diameter/BSA (cm/m^2): 2.8 LV sys. diameter/BSA (cm/m^2): 1.7 LA A2 area: 15.0 cm2 RA long axis: 5.1 cm LA A4 area: 14.3 cm2 RA area: 13.6 cm2 LA length (vol): 4.3 cm RA vol: 30.5 ml LA vol: 41.9 ml RA : 17.5 ml/m2 LA vol index: 24.0 ml/m2 IVC diam: 1.2 cm RVD1 (basal): 4.1 cm RVD2 (mid): 2.7 cm TAPSE: 3.2 cm Doppler Measurements & Calculations Ao V2 max: 153.5 cm/sec LVOT Max Young: 124.1 cm/sec Ao V2 mean: 102.0 cm/sec LV V1 max P.2 mmHg Ao max P.4 mmHg LV V1 VTI: 25.1 cm Ao mean P.6 mmHg SHANICE(I,D): 2.8 cm2 Ao V2 VTI: 29.5 cm SHANICE(V,D): 2.7 cm2 sev ratio: 0.85 SHANICE indexed to BSA (cm^2/m^2): 1.6 MV E max young: 77.7 cm/sec PA V2 max: 108.0 cm/sec MV A max young: 59.3 cm/sec PA V2 mean: 69.4 cm/sec MV E/A: 1.3 PA mean P.2 mmHg Med Peak E' Young: 6.9 cm/sec PA pr(Accel): 25.9 mmHg E/E' med: 11.3 Lat Peak E' Young: 12.5 cm/sec E/E' lat: 6.2 E/e' average: 8.8 MV dec time: 0.22 sec SV(LVOT): 82.3 ml Reading Physician:09:16 AM
[2023-06-16 20:45] LABS: Cholesterol 160 mg/dL (140-199); HDL Cholesterol 61 mg/dL (40-60); LDL Cholesterol Calculated 80 mg/dL (<100); Triglycerides 96 mg/dL (35-150)
[2023-06-16 21:17] LABS: Thyroid Stimulating Hormone 0.571 uIU/mL (0.47-4.68)
--- NOTE | 2023-06-16 22:08 | P.HP_ITS ---
History of Present Illness History of Present Illness Chief complaint: heart slowed down T-1/nausea Narrative: 73 years old male with history of hypertension, hyperlipidemia, GERD, constipation presented to the ER with bradycardia. He was sleeping yesterday when he woke up with feeling of choking and low heartbeat. He also was complaining of weakness, diaphoresis and dyspnea for around 15 minutes. He fell asleep again after that and came to the ER today for further evaluation. Denies any chest pain, cough, fever, shortness of breath, nausea, vomiting, abdominal pain, diarrhea or dysuria. Never had the symptoms before. No any change of his home medications lately. Denies any cardiac work-up in the past. Denies taking any aspirin. Family history positive for father of heart disease in early 50s. Compliant to his home medications. In the ER the extensive work-up was negative. Cardiology was contacted and recommended to admit the patient overnight for heart monitoring and echo in the morning. [facility] Medical History (Updated 06/16/23 @ 22:14 by Peng Lama MD) Chronic prostatitis Benign prostatic hyperplasia History of tobacco use Lower urinary tract symptoms Abnormal prostate by palpation Vaping nicotine dependence, non-tobacco product Elevated PSA Vision disorder Rosacea (~2011) Fractures Hearing loss (~1998) Cataracts, bilateral HTN (hypertension) Hyperlipidemia Neuroma of foot Bilateral foot pain Numbness and tingling of both feet Surgical History Anesthesia History of inguinal hernia repair (~1978) History of endoscopy History of colonoscopy Family History Father Liver cancer Mother Cancer Sister Cancer Grandmother CVA (cerebral vascular accident) Social History marital status: number of children: 3 household members: significant other occupational status: other Smoking Status: Current every day smoker alcohol intake: never caffeine: Yes Type(s) of exercise: walking and other frequency: daily Meds Home Medications and Allergies Home Medications Medication Instructions Recorded Confirmed Type atorvastatin 10 mg tablet 10 mg PO DAILY #90 tabs 12/18/22 06/16/23 Rx pantoprazole 20 mg tablet,delayed 20 mg PO DAILY #90 tabs 12/18/22 06/16/23 Rx release lisinopril 30 mg tablet 30 mg PO BEDTIME 02/12/23 06/16/23 History doxycycline hyclate 100 mg tablet 100 mg PO DAILY 06/16/23 06/16/23 History Allergies Allergy/AdvReac Type Severity Reaction Status Date / Time No Known Drug Allergies Allergy Verified 06/16/23 12:47 Review of Systems Review of Systems ROS: Yes All systems reviewed with the patient and are negative except as otherwise documented Constitutional Constitutional: Reports as per HPI and Reports system reviewed and no additional complaints, except as documented Eyes Eyes: Reports as per HPI and Reports system reviewed and no additional complaints, except as documented ENT Ears, Nose, Mouth, and Throat: Yes as per HPI and Yes system reviewed and no additional complaints, except as documented Cardiovascular Cardiovascular: Reports system reviewed and no additional complaints, except as documented Respiratory Respiratory: Reports system reviewed and no additional complaints, except as documented Gastrointestinal Gastrointestinal: Reports system reviewed and no additional complaints, except as documented Genitourinary Genitourinary: Reports system reviewed and no additional complaints, except as documented Musculoskeletal Musculoskeletal: Reports system reviewed and no additional complaints, except as documented, Reports abnormal gait and Reports numbness Neurologic Neurologic: Reports system reviewed and no additional complaints, except as documented, Reports abnormal gait, Reports confusion and Reports numbness Psychiatric Psychiatric: Reports system reviewed and no additional complaints, except as documented and Reports confusion Exam Vital Signs (past 8 hours): - 06/16/23 16:06/16/23 17:16 06/16/23 17:17 Pulse Rate 77 Respiratory Rate Blood Pressure 173/89 H 223/105 H Pulse Oximetry 100 100 Oxygen Delivery Method Room Air 06/16/23 17:17 06/16/23 17:19 06/16/23 17:19 Pulse Rate 87 80 Respiratory Rate 16 Blood Pressure 217/91 H Pulse Oximetry 98 100 Oxygen Delivery Method Room Air 06/16/23 17:30 06/16/23 17:30 06/16/23 18:00 Pulse Rate 79 82 Respiratory Rate 12 Blood Pressure 179/89 H Pulse Oximetry 100 98 Oxygen Delivery Method Room Air 06/16/23 18:00 06/16/23 18:30 06/16/23 18:30 Pulse Rate 79 Respiratory Rate Blood Pressure 191/92 H 173/84 H Pulse Oximetry 100 Oxygen Delivery Method Room Air 06/16/23 19:02 06/16/23 19:09 06/16/23 19:29 Pulse Rate 75 77 73 Respiratory Rate 10 L Blood Pressure 173/84 H Pulse Oximetry 100 100 Oxygen Delivery Method Room Air 06/16/23 19:29 06/16/23 19:30 06/16/23 19:30 Pulse Rate 72 Respiratory Rate Blood Pressure 171/77 H 168/82 H Pulse Oximetry 100 Oxygen Delivery Method 06/16/23 20:00 06/16/23 20:01 06/16/23 20:01 Pulse Rate 81 77 Respiratory Rate Blood Pressure 202/81 H Pulse Oximetry 97 100 Oxygen Delivery Method Oxygen Delivery Method Room Air Const General: cooperative, comfortable and well developed Orientation: alert and oriented x3 HENMT Head: normal to inspection, normocephalic and atraumatic Face and sinus: normal facial exam Mouth: oral mucosae normal and moist mucous membranes Throat: posterior oropharynx normal Eyes General: appearance normal, both eyes and all related structures Pupils: PERRL EOM: EOM intact bilaterally Neck Neck: normal visual inspection and full ROM Chest Chest: normal inspection of the chest Resp Effort & Inspection: normal respiratory effort and able to speak in complete sentences Auscultation: clear to auscultation bilaterally Cardio Palpation: normal PMI Rate: regular rate Rhythm: regular rhythm Heart Sounds: S1 normal and S2 normal GI Inspection: normal to inspection Palpation: soft and no hepatosplenomegaly Auscultation: normal bowel sounds Skin General: no rashes or lesions noted Lesions: no lesions Rashes: no rashes Trauma: no lacerations or abrasions Neuro General: patient alert, patient awake, patient oriented x3 and no focal motor deficits Cranial Nerves: CN's II-XI intact bilaterally Cognition: normal cognition Speech: speech normal Gait: normal gait Motor: muscle tone normal throughout Sensory Exam: no sensory deficits noted Extrem General: full ROM and no calf tenderness Psych Appearance: grossly normal Mental Status: mental status grossly normal Speech and Movement: speech and movement normal Objective Labs 06/16/23 12:55 06/16/23 12:55 Labs: Laboratory Results - last 24 hr 06/16/23 06/16/23 12:55 16:06 WBC 6.7 RBC 4.44 L Hgb 12.7 L Hct 36.6 L MCV 82.3 MCH 28.6 MCHC 34.7 RDW 13.4 Plt Count 264 Neut % (Auto) 70.2 Lymph % (Auto) 16.5 L Potter % (Auto) 11.1 Eos % (Auto) 1.6 L Baso % (Auto) 0.6 Neut # (Auto) 4700 Lymph # (Auto) 1100 Potter # (Auto) 700 Eos # (Auto) 100 Baso # (Auto) 0 PT 11.7 INR 1.0 APTT 31 Sodium 130 L Potassium 5.0 Chloride 97 L Carbon Dioxide 26 BUN 14 Creatinine 0.79 Estimated GFR > 60 BUN/Creatinine Ratio 17.7 Glucose 108 Calcium 9.8 Magnesium 2.0 Total Bilirubin 0.3 AST 26 ALT 19 Alkaline Phosphatase 75 Total Creatine Kinase 78 Troponin I < 0.012 < 0.012 Total Protein 7.1 Albumin 4.2 Globulin 2.9 Albumin/Globulin Ratio 1.4 Triglycerides 96 Cholesterol 160 LDL Cholesterol, Calc 80 HDL Cholesterol 61 H Lipase 74 TSH 0.571 Assessment & Plan Assessment and plan (1) Symptomatic bradycardia: Status: Acute Plan: Unclear etiology -Start telemetry, serial cardiac enzymes -Start aspirin -Echo in the morning -Cardiology consult for follow-up as outpatient -Check his lipids and TSH (2) HTN (hypertension): Qualifiers: Hypertension type: primary hypertension Qualified Code(s): I10 - Essential (primary) hypertension Status: Acute Plan: Restart his lisinopril Hydralazine as needed (3) Hyperlipidemia: Qualifiers: Hyperlipidemia type: unspecified Qualified Code(s): E78.5 - Hyperlipidemia, unspecified Status: Acute Plan: Restart his atorvastatin (4) GERD (gastroesophageal reflux disease): Status: Acute Plan: Restart his Protonix Time Spent With Patient Time with patient: 50 to 69 minutes with 50% spent counseling/coordinating care Quality VTE Deep Vein Thrombosis/Pulmonary Embolism Present on Admission: No MIPS - Admit I confirm the patient?s Advance Care Plan is present, Code status is documented, Surrogate decision maker is in patient?s record [If Yes, STOP here]: Yes MIPS - Meds 'Current medications' to include all prescriptions, [id number] products, herbals, cannabis/cannabidiol products, and vitamin/mineral/dietary (nutritional) supplements. I have utilized all available resources to obtain, update, or review the patient?s current medications. [If Yes, STOP here]: Yes
[2023-06-16] MEDS: ACETAMINOPHEN 325 MG TABLET 650 MG PO (23:01)
[2023-06-16] MEDS: SODIUM CHLORIDE 0.9% FLUSH 10 ML IV (23:02)
[2023-06-17 03:01] VITALS: BP 144/71; PULSE 64; RESP 20; TEMP 36.3; O2SAT 98
[2023-06-17 07:26] LABS: Troponin I < 0.012 ng/mL (0.01-0.034)
[2023-06-17 08:36] VITALS: BP 151/80; PULSE 61; RESP 16; TEMP 36.3; O2SAT 100
[2023-06-17 08:56] LABS: Alanine Aminotransferase 20 IU/L (<50); Albumin 4.1 g/dL (3.5-5.0); Albumin Globulin Ratio 1.3 (1.0-2.8); Alkaline Phosphatase 53 U/L (38-126); Aspartate Aminotransferase 33 IU/L (17-59); BUN Creatinine Ratio 15.8 (6-22); Bilirubin Total 0.7 mg/dL (0.2-1.3); Blood Urea Nitrogen 12 mg/dL (9-20); Calcium 9.6 mg/dL (8.4-10.2); Carbon Dioxide 24 mmol/L (22-32); Chloride 98 mmol/L (98-107); Estimated Glomerular Filt Rate > 60 mL/min (>60); Globulin 3.1 g/dL (1.7-4.1); Glucose 87 mg/dL (80-110); Magnesium 1.9 mg/dL (1.6-2.3); Sodium 130 mmol/L (137-145); Total Protein 7.2 g/dL (6.3-8.2)
[2023-06-17 08:57] LABS: HEMOLYSIS 119 (0-50); Potassium 4.9 mmol/L (3.4-5.1)
[2023-06-17] MEDS: SODIUM CHLORIDE 0.9% FLUSH 10 ML IV (09:45)
[2023-06-17] MEDS: ATORVASTATIN 20 MG TABLET 10 MG PO (09:45)
[2023-06-17] MEDS: ASPIRIN EC 81 MG TABLET PO (09:45)
[2023-06-17] MEDS: PANTOPRAZOLE DR 20 MG TABLET PO (09:45)
[2023-06-17 12:00] VITALS: BP 170/71; PULSE 71; RESP 16; TEMP 36.9; O2SAT 100
--- NOTE | 2023-06-17 13:02 | CM.DANOTE ---
DCP Assessment Note: Patient is a 72yo M here following unspecified heart concern. PCP Cachorro Murguia Payer Medicare and Commercial insurance [employer] reviewed EMR. Per H&P and hospitalist, likely home following echo. [employer] entered room and introduced self and role. Patient accompanied by spouse Mica ([phone]) at bedside. Patient reports he is IADLs/drives at baseline. No DME. Patient reports it's the two of them in the home and takes good care of [him]. Patient and spouse deny any additional resources or support at this time. Plan: likely home when medically stable. Transport with in POV. No needs identified at this time. CM team will continue to follow as needed, MAURI Chavira Discharge Planning/Care Management CM Discharge Assessment Start: 06/17/23 13:01 Freq: Status: Active Protocol: Document 06/17/23 13:01 (Rec: 06/17/23 13:02 [id number]) Discharge Planning Assessment Assigned Editor Continuity And Script MAURI Lipscomb DPOA/Assigned Designee Name Mica () Contact Information [phone] Advance Directives? No History Provided By Patient,Family Member,Medical Record Prior Living Arrangements House Household Members significant other Type of transporation used prior to Drives own vehicle admit Independent with ADL's Yes Is patient alert and oriented? Yes Discharge Plan Home Transportation Arrangement in POV Whiteboard Updated in Patient Room with Yes name and ext. # of [employer] Review Status In Process Next Review Type Continued Stay Review
[2023-06-17 15:05] LABS: Appearance Urine UA CLEAR; Bilirubin Urine UA NEGATIVE (NEGATIVE); Color Urine UA YELLOW; Glucose Urine UA NEGATIVE (Negative); Ketones Urine UA NEGATIVE (NEGATIVE); Leukocyte Esterase Urine UA NEGATIVE (NEGATIVE); Nitrite Urine UA NEGATIVE (Negative); Occult Blood Urine UA NEGATIVE (Negative); Protein Urine UA NEGATIVE (Negative); Specific Gravity Urine UA 1.015 (1.000-1.035); Urobilinogen Urine UA 0.2 E.U./dL (0.2)
[2023-06-17 15:15] LABS: Bacteria Urine Occasional (0-1); Culture Indicated Urine Cult Not Indicated; RBC Urine 0-1/HPF (0-5/HPF); Squamous Epithelial Cell Urine 0-1 /HPF (0-5/HPF); WBC Urine 0-1/HPF (0-5/HPF)
--- NOTE | 2023-06-17 15:56 | PC.NURSE ---
Discharge: Pt feels ready to d/c to home. Rare slower rates. Tolerates diet w/out problems. Up in room with out diff and remains in a SR. Denies pain, no c/p. Discharge packet reviewed and understood. Questions answered. Pt d/c to home via auto w/spouse.
--- NOTE | 2023-06-18 21:50 | P.DS_ITS ---
History of Present Illness History of Present Illness Chief complaint: heart slowed down T-1/nausea Narrative: Per admitting physician: 73 years old male with history of hypertension, hyperlipidemia, GERD, constipation presented to the ER with bradycardia. He was sleeping yesterday when he woke up with feeling of choking and low heartbeat. He also was complaining of weakness, diaphoresis and dyspnea for around 15 minutes. He fell asleep again after that and came to the ER today for further evaluation. Denies any chest pain, cough, fever, shortness of breath, nausea, vomiting, abdominal pain, diarrhea or dysuria. Never had the symptoms before. No any change of his home medications lately. Denies any cardiac work-up in the past. Denies taking any aspirin. Family history positive for father of heart disease in early 50s. Compliant to his home medications. In the ER the extensive work-up was negative. Cardiology was contacted and recommended to admit the patient overnight for heart monitoring and echo in the morning. Discharge Providers Provider Date of admission: 06/16/23 20:21 Discharge Date: 06/17/23 Primary care physician: Cachorro Murguia DO Discharge provider: Rodrigo Johnston MD Summary Hospital Course Discharge Diagnosis: 1. Bradycardia 2. Hypertension 3. Hyperlipidemia 4. GERD Hospital Course: Mr. Godoy presented to the hospital for concern for symptomatic bradycardia. He was monitored on tele overnight with no concerning symptomatic arrhythmias. He had an ECHO done with no acute process. He is recommended to follow up with his PCP for possible ziopatch. Exam Narrative Exam Narrative: GEN: no acute distress CV: regular rate and rhythm PULM: clear bilaterally Objective Labs 06/16/23 12:55 06/17/23 08:21 [facility] Medical History (Updated 06/16/23 @ 22:14 by Peng Lama MD) Chronic prostatitis Benign prostatic hyperplasia History of tobacco use Lower urinary tract symptoms Abnormal prostate by palpation Vaping nicotine dependence, non-tobacco product Elevated PSA Vision disorder Rosacea (~2011) Fractures Hearing loss (~1998) Cataracts, bilateral HTN (hypertension) Hyperlipidemia Neuroma of foot Bilateral foot pain Numbness and tingling of both feet Surgical History Anesthesia History of inguinal hernia repair (~1978) History of endoscopy History of colonoscopy Family History Father Liver cancer Mother Cancer Sister Cancer Grandmother CVA (cerebral vascular accident) Social History marital status: number of children: 3 household members: significant other occupational status: other Smoking Status: Current every day smoker alcohol intake: never caffeine: Yes Type(s) of exercise: walking and other frequency: daily Discharge Plan Discharge Plan Patient Disposition: Home Discharge orders & Medications Prescriptions: Continued atorvastatin 10 mg tablet 10 mg PO DAILY Qty: 90 3RF pantoprazole 20 mg tablet,delayed release (DR/EC) 20 mg PO DAILY Qty: 90 3RF doxycycline hyclate 100 mg tablet 100 mg PO DAILY psyllium husk 6 gram Powder In Packet 6 g PO QAM magnesium oxide 400 mg magnesium Tablet 400 mg PO DAILY Rx Instructions: alternating 1 tablet QD and BID. lisinopril 30 mg tablet 30 mg PO BEDTIME Follow up/Referrals: [facility] [Provider Group] - 1 Month (A referal is being sent by Dr Soriano nurse please give [facility] a couple of days to recieve this then call them to schedule a appointment for hospital stay of bradycardia ) Cachorro Murguia, DO [Primary Care Provider] - 06/24/23 4:00 pm (Appt:06/24 @ 4:[address] Murguia please arrive 15 min prior to scheduled appointment time-Dr Murguia's nurse is activating a referal to cardiology for transient bradycardia, consider komal testing for apnea, ziopatch) Diet/Activity/Treatments Diet: Regular Visit Report/Discharge Packet Instructions: DI for Gastroesophageal Reflux Disease (GERD), How to Prevent Falls, DI for Bradycardia, DI for Dizziness-Nonvertigo Stand Alone Forms: Patient Portal/API, Stroke Signs & Symptoms Discharge Data Primary Care Provider: Cachorro Murguia Attending Provider: Peng Lama Admit Date/Time: 06/16/23 20:21 Discharges patient from system. Discharge Date/Time: 06/17/23 15:00 Quality VTE Deep Vein Thrombosis/Pulmonary Embolism Present on Admission: No
== END 2023-06-17 15:00 | disposition home or self-care (01) ==
LOC: ED 19:44 → AC 20:23
PROVIDERS: Emergency Medicine; Admitting Provider Internal Medicine; Emergency Provider Emergency Medicine; PCP Family Medicine; Referring Provider Emergency Medicine; Visit Provider Internal Medicine
DX: R00.1 Bradycardia, unspecified (principal); I10 Essential (primary) hypertension; E78.5 Hyperlipidemia, unspecified; K21.9 Gastro-esophageal reflux disease without esophagitis
CPT/HCPCS: 36415; 70450; 71045; 80053; 80061; 81001; 82550; 83690; 83735; 84443; 84484; 85025; 85610; 85730; 93005; 93010; 93306; 99285; G0378

== ENCOUNTER → 2023-07-07 15:18 | Outpatient (CLI) | payer MEDICARE, OTHER, SELFPAY ==
[2023-06-16 20:44] VITALS: BMI 22.7
--- NOTE | 2023-07-07 15:26 | DI.NM.S_ITS ---
PROCEDURE: NM EXERCISE TREADMILL NON NUC COMPARISON: None. INDICATIONS: Chest pain, unspecified FINDINGS: The patient exercised for 9 minutes and 24 seconds reaching 109% of maximum predicted heart rate, 10.1 METs, RASHARD -33%. Hypertension at rest (BP 155/80mmHg) and hypertensive response to exercise (max BP 220/100mmHg). No angina and no ST changes during exercise or recovery. Rare PVCs during exercise. IMPRESSION: Low risk, normal treadmill ECG only stress test with good exercise tolerance (RASHARD -33%). Hypertension at rest (BP 155/80mmHg) and hypertensive response to exercise (max BP 220/100mmHg). Dictated by: Yogi Lu MD on 07/08/2023 at 13:10 Approved by: Yogi Lu MD on 07/08/2023 at 13:12
== END ==
PROVIDERS: PCP Family Medicine; Referring Provider Internal Medicine Cardiovascular Disease; Visit Provider Internal Medicine Cardiovascular Disease
DX: R07.9 Chest pain, unspecified (principal)
CPT/HCPCS: 93017

== ENCOUNTER 2023-07-19 00:21 | Emergency (ER) | payer MEDICARE, OTHER, SELFPAY ==
[2023-06-16 20:44] VITALS: BMI 22.7
[2023-07-19] VITALS (10 sets, daily range): BP systolic 134–199; BP diastolic 73–101; PULSE 82–97; RESP 16–34; TEMP 36.3–36.5; O2SAT 83–100; BMI 22.2
--- NOTE | 2023-07-19 01:06 | ED_ITS ---
HPI - General Adult General Chief complaint: Hypertension Stated complaint: HTN Time Seen by Provider: 07/19/23 00:54 Source: patient and EMS Mode of arrival: EMS History of Present Illness HPI narrative: Gentleman comes to the ED tonight because of unusual chest symptoms. He feels a vague sense of breathlessness and felt diaphoretic tonight. He checked his blood pressure and it was quite high compared to baseline this made him very concerned and he thought he better come to the hospital for further evaluation and called 911. Paramedics found his blood pressure to be about 170/90 which is similar to what he observed at home. He does vape nicotine. He takes cholesterol medication and lisinopril for his blood pressure. He has a little bit of vague nausea. No overt pain but just some discomfort that is maybe a level 1. Some nausea but no vomiting. He said he did spit up a little bit in his mouth at 1 point. He says he is had some degree of these symptoms on and off for the better part of a month now following a more significant event for which he was seen in the emergency department at that time. No specific diagnosis has been made and he has had a normal stress test in the interim. He is also been on a Zio patch which has yet to be interrogated. No early family history of coronary disease. No history of thromboembolic disease no recent surgeries. No cancer diagnosis. No exogenous estrogens. No personal history of vascular disease. Related Data Home Medications Medication Instructions Recorded Confirmed lisinopril 30 mg tablet 30 mg PO BEDTIME 02/12/23 06/20/23 doxycycline hyclate 100 mg tablet 100 mg PO DAILY 06/16/23 06/20/23 magnesium oxide 400 mg PO DAILY 06/17/23 06/20/23 psyllium husk 6 gram oral powder 6 g PO QAM 06/17/23 06/20/23 packet Previous Rx's Medication Instructions Recorded atorvastatin 10 mg tablet 10 mg PO DAILY #90 tabs 12/18/22 pantoprazole 20 mg tablet,delayed 20 mg PO DAILY #90 tabs 12/18/22 release lisinopril 10 mg tablet 10 mg PO DAILY #90 tabs 06/23/23 azithromycin 250 mg tablet 250 mg PO DAILY 4 days #4 tabs 07/19/23 Allergies Allergy/AdvReac Type Severity Reaction Status Date / Time No Known Drug Allergies Allergy Verified 06/20/23 10:30 Patient History Medical History (Updated 07/19/23 @ 02:54 by Romulo Ramsey MD) Anxiety about health Snoring Chronic prostatitis Benign prostatic hyperplasia History of tobacco use Lower urinary tract symptoms Abnormal prostate by palpation Vaping nicotine dependence, non-tobacco product Elevated PSA Vision disorder Rosacea (~2011) Fractures Hearing loss (~1998) Cataracts, bilateral HTN (hypertension) Hyperlipidemia Neuroma of foot Bilateral foot pain Numbness and tingling of both feet Surgical History Anesthesia History of inguinal hernia repair (~1978) History of endoscopy History of colonoscopy Family History Father Liver cancer Mother Cancer Sister Cancer Grandmother CVA (cerebral vascular accident) Social History marital status: number of children: 3 household members: significant other occupational status: other Smoking Status: Current every day smoker alcohol intake: never caffeine: Yes Type(s) of exercise: walking and other frequency: daily Smoking Status: Current every day smoker tobacco type: vaping alcohol intake frequency: 0-2 drinks per day Substance Use Type: marijuana Exam Narrative Exam Narrative: GENERAL: Alert, cooperative and in no distress. HEAD: Atraumatic. Normocephalic. EYES: Sclera are clear without icterus. Extraocular movements are full. ENT: No rhinorrhea. NECK: Supple. Full range of motion. CARDIOVASCULAR: Normal rate and rhythm without murmur gallop or rub. RESPIRATORY: Clear to auscultation. Breath sounds equal bilaterally. No wheezes, rales, or rhonchi. GASTROINTESTINAL: Abdomen soft, non-tender, nondistended. EXTREMITIES: No edema, full range of motion. No obvious trauma. BACK: Normal inspection, no CVA tenderness. NEURO: Nonfocal examination, normal speech SKIN: No rash or erythema of visible areas PSYCH: Normally oriented. Normal range of affect. Appropriate behavior Initial Vital Signs Initial Vital Signs: Vital Signs Pulse Rate 97 H 07/19/23 00:24 Pulse Oximetry 99 07/19/23 00:24 Course Orders Ordered: ED Orders 07/19/23 00:24 Complete Blood Count AUTO DIFF Stat Comprehensive Metabolic Panel Stat D Dimer Stat Lipase Stat Procalcitonin Stat Troponin & CK Cardiac Panel Stat 07/19/23 01:05 EKG-12 Lead Stat 07/19/23 01:53 XR chest 2V Stat Discontinued Medications Azithromycin (Azithromycin 250 Mg Tablet) 500 mg PO NOW ONE Stop: 07/19/23 02:48 Vital Signs Vital signs: Vital Signs - 8 hr 07/19/23 00:24 07/19/23 00:25 07/19/23 00:25 Temperature Pulse Rate 97 H 96 H Respiratory Rate Blood Pressure 199/101 H Pulse Oximetry 99 100 Oxygen Delivery Method 07/19/23 00:30 07/19/23 00:30 07/19/23 00:38 Temperature 97.7 F Pulse Rate 95 H 88 Respiratory Rate 22 16 Blood Pressure 183/91 H 183/91 H Pulse Oximetry 100 99 Oxygen Delivery Method Room Air 07/19/23 01:00 07/19/23 01:00 07/19/23 01:30 Temperature Pulse Rate 86 82 Respiratory Rate 22 31 H Blood Pressure 143/86 H Pulse Oximetry 98 99 Oxygen Delivery Method 07/19/23 01:30 07/19/23 02:05 07/19/23 02:30 Temperature Pulse Rate 96 H 90 Respiratory Rate 30 H 34 H Blood Pressure 134/79 Pulse Oximetry 83 L 98 Oxygen Delivery Method 07/19/23 02:32 07/19/23 02:32 Temperature Pulse Rate 86 Respiratory Rate 28 H Blood Pressure 143/73 H Pulse Oximetry 98 Oxygen Delivery Method Medical Decision Making Lab Data 07/19/23 00:24 07/19/23 00:24 Labs: Lab Results 07/19/23 Range/Units 00:24 WBC 16.5 H (4.5-11.0) X10^3/uL RBC 5.13 (4.5-5.9) X10^6/uL Hgb 14.4 (13.5-17.5) g/dL Hct 43.2 (41-53) % MCV 84.1 (80-100) fL MCH 28.1 (26-34) PG MCHC 33.4 (30-36) % RDW 13.8 (11.6-14.8) % Plt Count 329 (150-400) X10^3/uL Neut % (Auto) 78.1 H (50-75) % Lymph % (Auto) 14.8 L (25-40) % Evangeline % (Auto) 6.1 (3-14) % Eos % (Auto) 0.5 L (2-4) % Baso % (Auto) 0.5 (0-2) % Neut # (Auto) 54752 H (1551-8291) /uL Lymph # (Auto) 2400 (7466-7886) /uL Evangeline # (Auto) 1000 H (0-900) /uL Eos # (Auto) 100 (0-450) /uL Baso # (Auto) 100 (0-100) /uL D-Dimer 415 (<500) ng/ml Sodium 136 L (137-145) mmol/L Potassium 4.2 (3.4-5.1) mmol/L Chloride 97 L (98-107) mmol/L Carbon Dioxide 27 (22-32) mmol/L BUN 14 (9-20) mg/dL Creatinine 0.77 (0.66-1.25) mg/dL Estimated GFR > 60 (>60) mL/min BUN/Creatinine Ratio 18.2 (6-22) Glucose 105 (80-110) mg/dL Calcium 10.6 H (8.4-10.2) mg/dL Total Bilirubin 0.6 (0.2-1.3) mg/dL AST 40 (17-59) IU/L ALT 32 (<50) IU/L Alkaline Phosphatase 72 (38-126) U/L Total Creatine Kinase 104 (55-170) U/L Troponin I < 0.012 (0.01-0.034) ng/mL Total Protein 8.6 H (6.3-8.2) g/dL Albumin 5.0 (3.5-5.0) g/dL Globulin 3.6 (1.7-4.1) g/dL Albumin/Globulin Ratio 1.4 (1.0-2.8) Lipase 56 (23-300) U/L Procalcitonin 0.06 (<0.5) ng/mL Imaging Data Chest x-ray: My Impression: Normal chest x-ray Radiologist's Impression: Radiologist reports subtle change in the left lower lobe consistent with early infiltrate. ECG Data Interpretation: ECG obtained at 1:23 a.m. shows sinus rhythm at 83 beats per minute with a QTC of 427. This ECG is normal. MDM Narrative Medical decision making narrative: On July 07 of this year this patient underwent an exercise stress test with the following results: IMPRESSION:Low risk, normal treadmill ECG only stress test with good exercise tolerance (RASHARD -33%). Hypertension at rest (BP 155/80mmHg) and hypertensive response to exercise (max BP 220/100mmHg). Dictated by: Yogi Lu MD on 07/08/2023 at 13:10 Approved by: Yogi Lu MD on 07/08/2023 at 13:12 Patient has atypical chest symptoms with elevated blood pressure today. Taken together the elevation in the white blood cell count along with the mild infiltrate on the left and the vague chest symptoms makes me want to treat him empirically with azithromycin which we will do. See discharge instructions for additional details. Discharge Plan Departure Patient Disposition: Home Clinical Impression: Atypical pneumonia, Nicotine dependence Activity Restrictions/Additional Instructions: No evidence of an imminently dangerous chest abnormality. There is subtle evidence of an early pneumonia on the x-ray and that combined with the chest symptoms you have been experiencing and the elevated white blood cell count makes me want to treat you as if you have an atypical pneumonia. Take azithromycin 250 mg daily for the next 4 days. You received the 1st 500 mg dose here in the emergency department. Next dose will be due on Friday morning the . To help with nicotine addiction I recommend a 7 mg nicotine patch every morning upon awakening and 1 2 mg nicotine lozenge. Take the back of lozenges with you throughout the day and take 1 whenever you think of smoking or vaping. At bedtime take the nicotine patch off and threatened the garbage. Start the process over the next morning. After he is stabilized on this dose, I recommend discontinuing the patch and just using the lozenges and taper off those after a few weeks. For additional suggestions and strategies for quitting smoking I recommend that you call the free consultation phone number: 800 quit now. Of course you should follow-up with your primary care doctor in the coming week or 2 to discuss ongoing symptoms and further investigation as warranted. In the meantime he should return to the ED for severe symptoms such as fainting, breathlessness at rest, very high fever or severe chest pains. It is a pleasure meeting you today and I wish you the best. Prescriptions: New azithromycin 250 mg tablet 250 mg PO DAILY 4 Days Qty: 4 0RF Rx Instructions: start on day 2 of therapy No Action atorvastatin 10 mg tablet 10 mg PO DAILY Qty: 90 3RF pantoprazole 20 mg tablet,delayed release (DR/EC) 20 mg PO DAILY Qty: 90 3RF lisinopril 10 mg tablet 10 mg PO DAILY Qty: 90 0RF doxycycline hyclate 100 mg tablet 100 mg PO DAILY psyllium husk 6 gram Powder In Packet 6 g PO QAM magnesium oxide 400 mg magnesium Tablet 400 mg PO DAILY Rx Instructions: alternating 1 tablet QD and BID. lisinopril 30 mg tablet 30 mg PO BEDTIME Referrals: Cachorro Murguia DO [Primary Care Provider] - Stand Alone Forms: Patient Portal/API
[2023-07-19 01:27] LABS: Alanine Aminotransferase 32 IU/L (<50); Albumin Globulin Ratio 1.4 (1.0-2.8); Alkaline Phosphatase 72 U/L (38-126); Aspartate Aminotransferase 40 IU/L (17-59); BUN Creatinine Ratio 18.2 (6-22); Bilirubin Total 0.6 mg/dL (0.2-1.3); Blood Urea Nitrogen 14 mg/dL (9-20); Calcium 10.6 mg/dL (8.4-10.2); Carbon Dioxide 27 mmol/L (22-32); Chloride 97 mmol/L (98-107); Creatine Kinase 104 U/L (55-170); Estimated Glomerular Filt Rate > 60 mL/min (>60); Globulin 3.6 g/dL (1.7-4.1); Glucose 105 mg/dL (80-110); HEMOLYSIS 25 (0-50); Lipase 56 U/L (23-300); Potassium 4.2 mmol/L (3.4-5.1); Sodium 136 mmol/L (137-145); Total Protein 8.6 g/dL (6.3-8.2)
[2023-07-19 01:28] LABS: D Dimer 415 ng/ml (<500)
[2023-07-19 01:32] LABS: Add Manual Diff / Slide Review NO; Basophils Absolute Auto 100 /uL (0-100); Basophils Percent Auto 0.5 % (0-2); Eosinophils Absolute Auto 100 /uL (0-450); Eosinophils Percent Auto 0.5 % (2-4); Hematocrit 43.2 % (41-53); Hemoglobin 14.4 g/dL (13.5-17.5); Lymphocytes Absolute Auto 2400 /uL (1100-4500); Lymphocytes Percent Auto 14.8 % (25-40); Mean Corpuscular HGB Conc 33.4 % (30-36); Mean Corpuscular Hemoglobin 28.1 PG (26-34); Mean Corpuscular Volume 84.1 fL (80-100); Monocytes Absolute Auto 1000 /uL (0-900); Monocytes Percent Auto 6.1 % (3-14); Neutrophils Absolute Auto 12900 /uL (1500-7000); Neutrophils Percent Auto 78.1 % (50-75); Platelet Count 329 X10^3/uL (150-400); Red Blood Cell Count 5.13 X10^6/uL (4.5-5.9); Red Cell Distribution Width 13.8 % (11.6-14.8); White Blood Cell Count 16.5 X10^3/uL (4.5-11.0)
[2023-07-19 01:39] LABS: Troponin I < 0.012 ng/mL (0.01-0.034)
--- NOTE | 2023-07-19 01:53 | DI.RAD.S_ITS ---
PROCEDURE: XR CHEST 2V INDICATIONS: chest pain TECHNIQUE: 2 views of the chest were acquired. COMPARISON: [facility], , XR CHEST 1V, 06/16/2023, 13:14. [facility], CR, XR CHEST 1V, 10/28/2022, 1:30. FINDINGS: Surgical changes and devices: None. Lungs and pleura: Subtle increased attenuation within the left perihilar and left lower lobe regions, possibly representing an infiltrate. No pleural effusions or pneumothorax. Mediastinum: Mediastinal contours are normal. Heart size is normal. Bones and chest wall: No suspicious bony abnormalities. Soft tissues appear unremarkable. IMPRESSION: Subtle changes on the left, possibly representing a lower lobe infiltrate. Findings are concordant with preliminary interpretation provided by [facility]. Dictated by: Jonathan Galvez M.D. on 07/19/2023 at 7:51 Approved by: Jonathan Galvez M.D. on 07/19/2023 at 7:53
[2023-07-19 02:29] LABS: Procalcitonin 0.06 ng/mL (<0.5)
[2023-07-19] MEDS: AZITHROMYCIN 250 MG TABLET 500 MG PO (02:55)
== END 2023-07-19 03:06 | disposition home or self-care (01) ==
PROVIDERS: Emergency Provider Family Medicine Addiction Medicine; PCP Family Medicine
DX: J18.9 Pneumonia, unspecified organism (principal); R07.9 Chest pain, unspecified; F17.200 Nicotine dependence, unspecified, uncomplicated; R11.0 Nausea
CPT/HCPCS: 71046; 80053; 82550; 83690; 84145; 84484; 85025; 85379; 93005; 93010; 99283; 99284

== ENCOUNTER → 2023-09-10 16:15 | Outpatient (CLI) | payer MEDICARE, OTHER, SELFPAY ==
[2023-06-16 20:44] VITALS: BMI 22.7
[2023-09-13 00:56] LABS: PSA, Total 5.7 ng/mL (0.0-4.0)
== END ==
PROVIDERS: PCP Family Medicine; Referring Provider Urology; Visit Provider Urology
DX: R97.20 Elevated prostate specific antigen [PSA] (principal)
CPT/HCPCS: 36415; 84153; 84154

== ENCOUNTER 2023-09-25 13:47 | Day surgery (SDC) | payer MEDICARE, OTHER, SELFPAY ==
[2023-06-16 20:44] VITALS: BMI 22.7
--- NOTE | 2023-09-25 | PATH_ITS ---
[facility] Accession Number: [id number] No. of containers..02 Tissue . 01 Material submitted: . PART A: stomach - ANTRUM PART B: stomach - GASTRIC BODY . 01 Diagnosis: A. Antrum, Biopsy: Gastric mucosa with mild chronic inflammation. No Helicobacter pylori organisms identified on immunohistochemical evaluation. No intestinal metaplasia, dysplasia or malignancy. . B. Gastric Body, Biopsy: Gastric mucosa with mild chronic inflammation. No Helicobacter pylori organisms identified on immunohistochemical evaluation. No intestinal metaplasia, dysplasia or malignancy. MR 09/29/2023 1613 Local . 01 Comment: B. This part of the case has also been reviewed by Dr. Rory Israel, gastrointestinal pathologist, who concurs with the diagnosis. . 01 Electronically signed: . Josy Santiago MD, Pathologist NPI- [id number] . 01 Gross description: . Part A: ANTRUM : Received in formalin are 4 fragment(s) of barker, soft tissue measuring 0.2 x 0.2 x 0.2 cm to 0.3 x 0.3 x 0.2 cm submitted entirely in 1 cassette(s) Part B: GASTRIC BODY : Received in formalin are 3 fragment(s) of barker, soft tissue measuring 0.1 x 0.1 x 0.1 cm to 0.3 x 0.3 x 0.2 cm submitted entirely in 1 cassette(s) /AKASH 09/26/2023 2208 Local . 01 Microscopic: . A. An immunohistochemical stain was performed to evaluate for Helicobacter organisms and is negative. The control stain showed appropriate reactivity. . B. An immunohistochemical stain was performed to evaluate for Helicobacter organisms and is negative. The control stain showed appropriate reactivity. . * This test was developed and its performance characteristics determined by [facility]. It has not been cleared or approved by the U.S. Food and Drug Administration. The FDA has determined that such clearance or approval is not necessary. This test is used for clinical purposes. It should not be regarded as investigational or for research. . 01 Pathologist provided ICD-10: K29.70, K21.9 . 01 CPT . 027272, 347025, D76538 Specimen Comment: A courtesy copy of this report has been sent to [phone] Performed at: 01 [facility] [address] [place] [address], [place], [place] [id number] MD Shilo Badillo MD Phone: [phone]
[2023-09-25] MEDS: LACTATED RINGERS 1,000 ML 42 ML IV (15:02)
[2023-09-25 15:03] VITALS: BP 149/78; PULSE 80; RESP 16; TEMP 36.6; O2SAT 100
--- NOTE | 2023-09-25 15:29 | P.HP_ITS ---
History of Present Illness History of Present Illness Date Patient Seen: 09/25/23 Time Patient Seen: 15:29 Chief complaint: EGD & Colonoscopy Narrative: Eliazar is a 72-year-old man with a history of dysphagia and a Clarisa fundoplication as well as being due for colon cancer screening. See office note from August for more details. [facility] Medical History Abdominal bloating Change in stool caliber TAPIA (dyspnea on exertion) Exercise intolerance Anxiety about health Snoring Chronic prostatitis Benign prostatic hyperplasia History of tobacco use Lower urinary tract symptoms Abnormal prostate by palpation Vaping nicotine dependence, non-tobacco product Elevated PSA Vision disorder Rosacea (~2011) Fractures Hearing loss (~1998) Cataracts, bilateral HTN (hypertension) Hyperlipidemia Neuroma of foot Bilateral foot pain Numbness and tingling of both feet Surgical History Anesthesia History of inguinal hernia repair (~1978) History of endoscopy History of colonoscopy Family History Father Liver cancer Mother Cancer Sister Cancer Grandmother CVA (cerebral vascular accident) Social History marital status: number of children: 3 household members: significant other occupational status: other Smoking Status: Current every day smoker alcohol intake: never caffeine: Yes Type(s) of exercise: walking and other frequency: daily Meds Home Medications and Allergies Home Medications Medication Instructions Recorded Confirmed Type atorvastatin 10 mg tablet 10 mg PO DAILY #90 tabs 12/18/22 09/25/23 Rx pantoprazole 20 mg tablet,delayed 20 mg PO DAILY #90 tabs 12/18/22 09/25/23 Rx release magnesium oxide 400 mg PO DAILY 06/17/23 09/25/23 History lisinopril 10 mg tablet 10 mg PO DAILY #90 tabs 06/23/23 09/25/23 Rx lisinopril 30 mg tablet 30 mg PO BEDTIME #90 tabs 07/28/23 09/25/23 Rx amlodipine 5 mg tablet 5 mg PO DAILY 09/25/23 09/25/23 History Allergies Allergy/AdvReac Type Severity Reaction Status Date / Time No Known Drug Allergies Allergy Verified 09/25/23 15:01 Exam Vital Signs (past 8 hours): - 09/25/23 15:03 Temperature 97.8 F Pulse Rate 80 Respiratory Rate 16 Blood Pressure 149/78 H Pulse Oximetry 100 Oxygen Delivery Method Room Air Oxygen Delivery Method Room Air Const General: healthy appearing Resp Effort & Inspection: normal respiratory effort Assessment & Plan Assessment and plan (1) History of colon polyps: Status: Acute (2) Dysphagia: Qualifiers: Dysphagia type: unspecified Qualified Code(s): R13.10 - Dysphagia, unspecified Status: Acute Plan We discussed the risks and benefits of EGD and colonoscopy for dysphagia and colon cancer screening and he would like to proceed.
--- NOTE | 2023-09-25 16:16 | PM.OP.EC ---
Operative Date/Time/Diagnoses Date of procedure: 09/25/23 Time of procedure: 16:16 Pre-op diagnosis: Dysphagia and colon cancer screening Post-op diagnosis: same Procedure & Clinicians Study performed: EGD and colonoscopy Same procedure as scheduled: Yes Surgeon: Deonte Ken Procedure Notes Procedure in detail: Surgeon: Deonte Ken MD Anesthesia: Madi Centeno MD Procedure in detail: A timeout was performed. A bite blocked was placed and monitors were attached to the patient. The patient was positioned in the left lateral decubitus position. Sedation was administered. Once the patient was sedated the endoscope was inserted through the bite block and passed through the esophagus and stomach and into the duodenum. The duodenal was normal. We then withdrew the scope into the stomach. There was moderate antritis and gastritis and some old blood in the body of the stomach. Random biopsies were taken from the antrum and the body of the stomach. The endoscope was retroflexed and the Clarisa wrap was intact. The endoscope was straightned and withdrawn into the esophagus. No abnormalities were seen in the esophagus. EGD findings: Antritis and gastritis and intact Clarisa fundoplication Next we repositioned the patient for a colonoscopy. A digital rectal exam was performed and was normal except for mixed hemorrhoids. The colonoscope was inserted and advanced to the cecum. The appendiceal orifice was identified and photographed. The scope was slowly withdrawn over greater than 6 minutes. No abnormalities were found. The scope was retroflexed in the rectum and internal hemorrhoids were noted. Colonoscopy findings: Internal and external hemorrhoids Total procedural EBL: 5 mL Scope withdrawal time: 8 minutes Sedation minutes: 32 minutes Post-procedure Disposition: PACU
[2023-09-25 16:18] VITALS: BP 86/45; PULSE 60; RESP 13; O2SAT 94
[2023-09-25 16:19] VITALS: BP 91/49; PULSE 58; RESP 13; O2SAT 94
[2023-09-25 16:23] VITALS: BP 100/52; PULSE 59; PULSE 60; RESP 11; RESP 14; O2SAT 94; O2SAT 99
[2023-09-25 16:33] VITALS: BP 112/68; PULSE 65; RESP 12; O2SAT 99
[2023-09-25 16:41] VITALS: BP 123/79; PULSE 76; RESP 11; O2SAT 100
== END 2023-09-25 16:52 | disposition home or self-care (01) ==
PROVIDERS: PCP Family Medicine; Referring Provider Surgery; Visit Provider Surgery
PROC: 0DJ08ZZ Inspection of Upper Intestinal Tract, Via Natural or Artificial Opening Endoscopic (ICD-10-PCS; CPT 43235; principal; 2023-09-25 14:45)
PROC: 0DJD8ZZ Inspection of Lower Intestinal Tract, Via Natural or Artificial Opening Endoscopic (ICD-10-PCS; CPT 45378; 2023-09-25 14:45)
DX: Z12.11 Encounter for screening for malignant neoplasm of colon (principal); Z86.010 Personal history of colon polyps; R13.10 Dysphagia, unspecified; K29.50 Unspecified chronic gastritis without bleeding; K29.70 Gastritis, unspecified, without bleeding; Z98.890 Other specified postprocedural states; K64.8 Other hemorrhoids; K64.4 Residual hemorrhoidal skin tags; K21.9 Gastro-esophageal reflux disease without esophagitis
CPT/HCPCS: 45378; 43239; J2704

== ENCOUNTER → 2023-12-24 17:11 | Outpatient (CLI) | payer MEDICARE, OTHER, SELFPAY ==
[2023-06-16 20:44] VITALS: BMI 22.7
[2023-12-27 08:46] LABS: PSA Free % 23.2 % (.); PSA, Total 6.2 ng/mL (0.0-4.0)
== END ==
PROVIDERS: PCP Family Medicine; Referring Provider Urology; Visit Provider Urology
DX: R97.20 Elevated prostate specific antigen [PSA] (principal)
CPT/HCPCS: 36415; 84153; 84154

== ENCOUNTER → 2024-03-23 16:33 | Outpatient (CLI) | payer MEDICARE, OTHER, SELFPAY ==
[2023-06-16 20:44] VITALS: BMI 22.7
[2024-03-25 07:37] LABS: PSA Free % 27.3 % (.); PSA, Total 6.7 ng/mL (0.0-4.0)
== END ==
PROVIDERS: PCP Family Medicine; Referring Provider Urology; Visit Provider Urology
DX: R97.20 Elevated prostate specific antigen [PSA] (principal)
CPT/HCPCS: 36415; 84153; 84154

== ENCOUNTER → 2024-06-25 12:43 | Outpatient (CLI) | payer MEDICARE, OTHER, SELFPAY ==
[2023-06-16 20:44] VITALS: BMI 22.7
[2024-06-28 12:09] LABS: PSA Free % 20.6 % (.); PSA, Total 7.2 ng/mL (0.0-4.0)
== END ==
PROVIDERS: PCP Family Medicine; Referring Provider Urology; Visit Provider Urology
DX: R97.20 Elevated prostate specific antigen [PSA] (principal)
CPT/HCPCS: 84153; 84154

== ENCOUNTER 2024-08-30 17:11 | Observation (INO) | payer MEDICARE, OTHER, SELFPAY ==
[2023-06-16 20:44] VITALS: BMI 22.7
[2024-08-30] VITALS (17 sets, daily range): BP systolic 130–198; BP diastolic 66–96; PULSE 72–90; RESP 12–29; TEMP 36.4–37.2; O2SAT 92–100; BMI 23.5
--- NOTE | 2024-08-30 17:19 | EKG_ITS ---
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
--- NOTE | 2024-08-30 17:28 | DI.RAD.S_ITS ---
PROCEDURE: XR CHEST 1V INDICATIONS: chest pain TECHNIQUE: One view of the chest was acquired. COMPARISON: [facility], CR, XR CHEST 2V, 07/19/2023, 1:55. FINDINGS: Surgical changes and devices: None. Lungs and pleura: Lungs are clear. No pleural effusions or pneumothorax. Mediastinum: Mediastinal contours appear normal. Heart size is normal. Bones and chest wall: No suspicious bony lesions. Overlying soft tissues appear unremarkable. IMPRESSION: No acute cardiopulmonary abnormalities or focal consolidation. Dictated by: Raul Martins M.D. on 08/30/2024 at 18:18 Approved by: Raul Martins M.D. on 08/30/2024 at 18:18
[2024-08-30 17:33] LABS: Add Manual Diff / Slide Review NO; Basophils Absolute Auto 100 /uL (0-100); Basophils Percent Auto 1.1 % (0-2); Eosinophils Absolute Auto 100 /uL (0-450); Hematocrit 39.2 % (41-53); Hemoglobin 13.2 g/dL (13.5-17.5); Lymphocytes Absolute Auto 1700 /uL (1100-4500); Lymphocytes Percent Auto 24.5 % (25-40); Mean Corpuscular HGB Conc 33.8 % (30-36); Mean Corpuscular Hemoglobin 27.8 PG (26-34); Mean Corpuscular Volume 82.2 fL (80-100); Monocytes Absolute Auto 800 /uL (0-900); Monocytes Percent Auto 10.7 % (3-14); Neutrophils Absolute Auto 4500 /uL (1500-7000); Neutrophils Percent Auto 62.7 % (50-75); Platelet Count 317 X10^3/uL (150-400); Red Blood Cell Count 4.77 X10^6/uL (4.5-5.9); Red Cell Distribution Width 14.3 % (11.6-14.8); White Blood Cell Count 7.1 X10^3/uL (4.5-11.0)
[2024-08-30 17:39] LABS: Prothrombin Time 10.9 SECONDS (9.4-12.5)
[2024-08-30 17:44] LABS: Alanine Aminotransferase 26 IU/L (<50); Albumin 4.3 g/dL (3.5-5.0); Albumin Globulin Ratio 1.3 (1.0-2.8); Alkaline Phosphatase 82 U/L (38-126); Aspartate Aminotransferase 35 IU/L (17-59); Bilirubin Total 0.5 mg/dL (0.2-1.3); Blood Urea Nitrogen 20 mg/dL (9-20); Calcium 9.6 mg/dL (8.4-10.2); Carbon Dioxide 26 mmol/L (22-32); Chloride 100 mmol/L (98-107); Creatine Kinase 128 U/L (55-170); Estimated Glomerular Filt Rate > 60 mL/min (>60); Globulin 3.2 g/dL (1.7-4.1); Glucose 101 mg/dL (80-110); HEMOLYSIS < 15 (0-50); Lipase 50 U/L (23-300); Magnesium 1.9 mg/dL (1.6-2.3); Potassium 4.5 mmol/L (3.4-5.1); Sodium 131 mmol/L (137-145); Total Protein 7.5 g/dL (6.3-8.2)
[2024-08-30 17:48] LABS: PTT Partial Thromboplastin Tim 37 SECONDS (25.1-36.5)
[2024-08-30 17:55] LABS: NT-proBNP (BNP-Adult 18+) 76 pg/mL (<125); Troponin I < 0.012 ng/mL (0.01-0.034)
--- NOTE | 2024-08-30 18:35 | ED.CHESTPAIN ---
HPI - Chest Pain General Chief Complaint: Chest Pain Stated Complaint: chest discomfort, syncopal event 10 days ago, [facility] Time Seen by Provider: 08/30/24 18:34 Source: patient, RN notes reviewed and old records reviewed Mode of arrival: Ambulatory Limitations: no limitations History of Present Illness HPI narrative: 73-year-old male history of hypertension, dyslipidemia, GERD who comes in with complaint of slightly left-sided and substernal chest discomfort. Patient states it has not really pain but more of a discomfort sometimes will radiate to his back but not always. He states started about 2 or 3 weeks ago. He does note he had a syncopal episode about 2 weeks ago. Patient states he has been watching TV he thinks that he got up to stand felt very lightheaded and then passed out he did have abrasions on his face ultimately got back up went to bed and has not had any more syncopal episodes since then. Patient states he has not really had much shortness of breath with his symptoms he denies any subjective fevers. He denies any new cold cough or congestion. Has a little bit of chronic cough from vaping. Does note the discomfort may sometimes related to movement and states it may sometimes related to exertion but is equivocal about these. He states food does not seem to make it better or worse. Denies any swelling of his extremities. Notes that he had a syncopal episode about a year ago had stress test and monitor which were negative. Patient states he takes lisinopril 40 mg daily, amlodipine 5 mg daily, atorvastatin, pantoprazole for his home medications. He has not on any anticoagulation. Patient has had prior hernia repair. No prior cardiac or lung surgeries. No known drug allergies. Patient vapes nicotine uses a small amount daily. States he quit alcohol several years ago no recreational drugs. 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 His primary care physician is Dr. Murguia. Patient is accompanied by his family. Related Data Home Medications Medication Instructions Recorded Confirmed magnesium oxide 400 mg PO DAILY 06/17/23 08/30/24 amlodipine 5 mg tablet 5 mg PO DAILY 09/25/23 08/30/24 Previous Rx's Medication Instructions Recorded lisinopril 40 mg tablet 40 mg PO DAILY #90 tabs 10/17/23 atorvastatin 10 mg tablet 10 mg PO DAILY #90 tabs 01/08/24 pantoprazole 20 mg tablet,delayed 20 mg PO DAILY #90 tabs 01/08/24 release Allergies Allergy/AdvReac Type Severity Reaction Status Date / Time No Known Drug Allergies Allergy Verified 03/30/24 15:48 Review of Systems Review of Systems ROS Unobtainable: All systems reviewed & are unremarkable except as noted in HPI and below Patient History Medical History Rising PSA level Abdominal bloating Change in stool caliber TAPIA (dyspnea on exertion) Exercise intolerance Anxiety about health Snoring Chronic prostatitis Benign prostatic hyperplasia History of tobacco use Lower urinary tract symptoms Abnormal prostate by palpation Vaping nicotine dependence, non-tobacco product Elevated PSA Vision disorder Rosacea (~2011) Fractures Hearing loss (~1998) Cataracts, bilateral HTN (hypertension) Hyperlipidemia Neuroma of foot Bilateral foot pain Numbness and tingling of both feet Surgical History Anesthesia History of inguinal hernia repair (~1978) History of endoscopy History of colonoscopy Family History Father Liver cancer Mother Cancer Sister Cancer Grandmother CVA (cerebral vascular accident) Social History marital status: number of children: 3 household members: significant other occupational status: other Smoking Status: Current every day smoker alcohol intake: never caffeine: Yes Type(s) of exercise: walking and other frequency: daily Smoking Status: Current every day smoker tobacco type: vaping alcohol intake frequency: 0-2 drinks per day Exam Narrative Exam Narrative: GENERAL: Alert and oriented x three, male in mild distress HEENT: Head normocephalic, atraumatic, EOMI, pupils reactive, face symmetric, moist mucous membranes NECK: Supple, full range of motion CARDIOVASCULAR: Regular rate and rhythm without murmurs, rubs or gallops. No reproducible chest pain. No edema bilateral lower extremities. RESPIRATORY: Breath sounds equal bilaterally, no wheezes rales or rhonchi. No tachypnea or accessory muscle use. Speaks in full sentences. ABDOMEN: Soft, nontender. Normoactive bowel sounds all 4 quadrants. No guarding or rebound, rigidity, no mass : No CVA tenderness EXTREMITIES: Normal range of motion, no clubbing or edema. Neurovascularly intact NEUROLOGICAL: Cranial nerves II through XII grossly intact. Moving all extremities SKIN: Warm, dry, no petechiae, no rashes or lesions. Initial Vital Signs Initial Vital Signs: Vital Signs Temperature 98.9 F 08/30/24 17:24 Pulse Rate 86 08/30/24 17:24 Respiratory Rate 16 08/30/24 17:24 Blood Pressure 198/81 H 08/30/24 17:24 Pulse Oximetry 97 08/30/24 17:24 Oxygen Delivery Method Room Air 08/30/24 17:24 Course Orders Ordered: ED Orders 08/30/24 19:35 Trop I [Troponin I] Stat Acetaminophen (Acetaminophen 325 Mg Tablet) 650 mg PO Q6H PRN PRN Reason: Fever/Mild Pain (1-3) Last Admin: 08/30/24 23:23 Dose: 650 mg Documented By: ELICEO Al Hydrox/Mg Hydrox/Simethicone (Mag Hydrox/Alum/Simeth 30 Ml Udc) 30 ml PO Q6HR PRN PRN Reason: Dyspepsia Alprazolam (Alprazolam 0.25 Mg Tablet) 0.25 mg PO Q6H PRN PRN Reason: Anxiety Last Admin: 08/30/24 23:22 Dose: 0.25 mg Documented By: ELICEO Amlodipine Besylate (Amlodipine 5 Mg Tablet) 10 mg PO DAILY [facility] Atorvastatin Calcium (Atorvastatin 20 Mg Tablet) 10 mg PO BEDTIME [facility] Last Admin: 08/30/24 23:21 Dose: 10 mg Documented By: ELICEO Enoxaparin Sodium (Enoxaparin 40 Mg/0.4 Ml Syringe) 40 mg SUBCUT DAILY [facility] Hydralazine HCl (Hydralazine 20 Mg/Ml Vial) 10 mg IV Q6HR PRN PRN Reason: for SBP>170 Lisinopril (Lisinopril 20 Mg Tablet) 40 mg PO BEDTIME [facility] Naloxone HCl (Naloxone 0.4 Mg/Ml Vial) 0.2 mg IV Q2MIN PRN PRN Reason: Opiate Reversal Nitroglycerin (Nitroglycerin 0.4 Mg Sl Tab) 0.4 mg SL [id number] PRN PRN Reason: Chest Pain Ondansetron HCl (Ondansetron 4 Mg/2 Ml Inj) 4 mg IV Q8HR PRN PRN Reason: Nausea And Vomiting Pantoprazole Sodium (Pantoprazole Dr 20 Mg Tablet) 20 mg PO DAILY [facility] Sodium Chloride (Sodium Chloride 0.9% Flush) 10 ml IV PRN PRN PRN Reason: Flush Sodium Chloride (Sodium Chloride 0.9% Flush) 10 ml IV BID MARI Discontinued Medications Amlodipine Besylate (Amlodipine 5 Mg Tablet) 5 mg PO DAILY [facility] Atorvastatin Calcium (Atorvastatin 20 Mg Tablet) 10 mg PO DAILY [facility] Hydralazine HCl (Hydralazine 20 Mg/Ml Vial) 10 mg IV Q6HR PRN PRN Reason: Hypertension Lisinopril (Lisinopril 20 Mg Tablet) 40 mg PO DAILY [facility] Lisinopril (Lisinopril 20 Mg Tablet) 40 mg PO NOW ONE Stop: 08/30/24 22:47 Last Admin: 08/30/24 23:22 Dose: 40 mg Documented By: [facility] Vital Signs Vital signs: Vital Signs - 8 hr 08/30/24 21:00 08/30/24 21:00 08/30/24 21:32 Pulse Rate 77 82 Respiratory Rate 21 18 Blood Pressure 130/68 Pulse Oximetry 99 99 08/30/24 21:34 08/30/24 21:34 Pulse Rate 83 Respiratory Rate 18 Blood Pressure 183/96 H Pulse Oximetry 99 MDM - Chest Pain Lab Data 08/30/24 17:27 08/30/24 17:27 Labs: Lab Results 08/30/24 08/30/24 Range/Units 17:27 19:35 WBC 7.1 (4.5-11.0) X10^3/uL RBC 4.77 (4.5-5.9) X10^6/uL Hgb 13.2 L (13.5-17.5) g/dL Hct 39.2 L (41-53) % MCV 82.2 (80-100) fL MCH 27.8 (26-34) PG MCHC 33.8 (30-36) % RDW 14.3 (11.6-14.8) % Plt Count 317 (150-400) X10^3/uL Neut % (Auto) 62.7 (50-75) % Lymph % (Auto) 24.5 L (25-40) % [place] % (Auto) 10.7 (3-14) % Eos % (Auto) 1.0 L (2-4) % Baso % (Auto) 1.1 (0-2) % Neut # (Auto) 4500 (8247-9508) /uL Lymph # (Auto) 1700 (5551-4321) /uL [place] # (Auto) 800 (0-900) /uL Eos # (Auto) 100 (0-450) /uL Baso # (Auto) 100 (0-100) /uL PT 10.9 (9.4-12.5) SECONDS INR 1.0 (0.9-1.3) APTT 37 H (25.1-36.5) SECONDS Sodium 131 L (137-145) mmol/L Potassium 4.5 (3.4-5.1) mmol/L Chloride 100 (98-107) mmol/L Carbon Dioxide 26 (22-32) mmol/L BUN 20 (9-20) mg/dL Creatinine 0.87 (0.66-1.25) mg/dL Estimated GFR > 60 (>60) mL/min BUN/Creatinine Ratio 23.0 H (6-22) Glucose 101 (80-110) mg/dL Calcium 9.6 (8.4-10.2) mg/dL Magnesium 1.9 (1.6-2.3) mg/dL Total Bilirubin 0.5 (0.2-1.3) mg/dL AST 35 (17-59) IU/L ALT 26 (<50) IU/L Alkaline Phosphatase 82 (38-126) U/L Total Creatine Kinase 128 (55-170) U/L Troponin I < 0.012 0.022 (0.01-0.034) ng/mL NT-Pro-B Natriuret Pep 76 (<125) pg/mL Total Protein 7.5 (6.3-8.2) g/dL Albumin 4.3 (3.5-5.0) g/dL Globulin 3.2 (1.7-4.1) g/dL Albumin/Globulin Ratio 1.3 (1.0-2.8) Lipase 50 (23-300) U/L Imaging Data Chest x-ray: Radiologist's Impression: Eliazar Godoy??He/Him/His??73??M??1950 ? Allergy/Adv: No Known Drug Allergies (More??) Close Chest X-Ray (Signed) Raul Martins - 08/30/24 Chest X-Ray (Signed) Jonathan Galvez - 07/19/23 Telemetry Strips 06/16/23 Echocardiogram Ultrasound (Signed) Natasha Ruby - 06/16/[address] (Signed) Jonathan Galvez - 06/16/23 Chest X-Ray (Signed) Renato Fernandez - 06/16/23 Pelvis MRI (Signed) Waqas,Luke - 01/31/23 Chest X-Ray (Signed) MooreShilo - 10/28/22 Abdomen/Pelvis CT (Signed) Leeroy House - 04/29/22 Launch?[facility] [address] [address] XRay Report Signed Patient: Eliazar Godoy MR#: [id number] : 1950 Acct:[id number] Age/Sex: 73 / M Date of Service: 08/30/24 Loc: ED Accession Number: [id number] Procedure: XR chest 1V Ordering Provider: Diamante Arteaga D.O. PROCEDURE: XR CHEST 1V INDICATIONS: chest pain TECHNIQUE: One view of the chest was acquired. COMPARISON: [facility], , XR CHEST 2V, 07/19/2023, 1:55. FINDINGS: Surgical changes and devices: None. Lungs and pleura: Lungs are clear. No pleural effusions or pneumothorax. Mediastinum: Mediastinal contours appear normal. Heart size is normal. Bones and chest wall: No suspicious bony lesions. Overlying soft tissues appear unremarkable. IMPRESSION: No acute cardiopulmonary abnormalities or focal consolidation. Dictated by: Raul Martins M.D. on 08/30/2024 at 18:18 Approved by: Raul Martins M.D. on 08/30/2024 at 18:18 CT scan - chest: Radiologist's Impression: Eliazar Godoy??He/Him/His??73??M??1950 ? Allergy/Adv: No Known Drug Allergies (More??) Close Chest CTA (Signed) Raul Martins - 08/30/24 Chest X-Ray (Signed) Raul Martins - 08/30/24 Chest X-Ray (Signed) Jonathan Galvez - 07/19/23 Telemetry Strips 06/16/23 Echocardiogram Ultrasound (Signed) Natasha Ruby - 06/16/[address] (Signed) Jonathan Galvez - 06/16/23 Chest X-Ray (Signed) Renato Fernandez - 06/16/23 Pelvis MRI (Signed) Luke Alan - 01/31/23 Chest X-Ray (Signed) Shilo Moore - 10/28/22 Abdomen/Pelvis CT (Signed) Leeroy House - 04/29/22 Launch?[place] [address] CT Scan Report Signed Patient: Eliazar Godoy MR#: [id number] : 1950 Acct:[id number] Age/Sex: 73 / M Date of Service: 08/30/24 Loc: ED Accession Number: [id number] Procedure: CT angio chest PE protocol Ordering Provider: Natalie Fontenot D.O. PROCEDURE: CT ANGIO CHEST PE PROTOCOL INDICATIONS: chest pain x 2 weeks, syncope 2wks ago TECHNIQUE: After the administration of intravenous contrast, 2 mm thick sections acquired from the pulmonary apices to the posterior costophrenic angles. 3-dimensional maximum intensity projection (MIP) coronal and sagittal reformats were then acquired through the thorax. For radiation dose reduction, the following was used: automated exposure control, adjustment of mA and/or kV according to patient size. COMPARISON: [facility], CR, XR CHEST 1V, 08/30/2024, 17:35. FINDINGS: Image quality: Diagnostic. Pulmonary arteries: Pulmonary arteries are normal in size, and demonstrate no intraluminal filling defects to suggest central pulmonary embolism. Lower Neck: No enlarged lymph nodes. Thyroid: No thyroid nodules which require sonographic follow up, per consensus guidelines. Axillae: No enlarged lymph nodes. Chest Wall: Unremarkable. Bones: Visualized osseous structures appear intact without acute fracture or focal destructive lesion. No acute compression fractures of the imaged spine. Lungs and Pleura: No pneumothorax or pleural effusions. No consolidation or suspicious nodules. Upper lobe predominant pulmonary emphysematous changes. Heart: Heart size is normal. No pericardial effusion. Thoracic Vessels: No aortic aneurysm. Mediastinum and Rae: No enlarged lymph nodes. Esophagus: No wall thickening. No hiatal hernia. Upper Abdomen: Visualized upper abdomen solid organs and bowel loops appear normal. IMPRESSION: No pulmonary embolus. No acute cardiopulmonary process. Dictated by: Raul Martins M.D. on 08/30/2024 at 20:57 Approved by: Raul Martins M.D. on 08/30/2024 at 21:00 ECG Data Attestation: I personally reviewed and interpreted this ECG as follows: Prior ECG tracings: available for review Interpretation: Normal sinus rhythm rate 83 CA 156 QRS of 90 QTC of 413, no acute ST elevation. Patient has prior from 07/19/2023 appears similar with no acute ST changes. Repeat EKG shows sinus rhythm rate of 77 CA 164 QRS 88 QTC of 423, no acute ST elevation or depression noted. 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 Workup overall has been negative although troponin trended upwards. Labs show white count of 7.1 hemoglobin of 13.3 patient has priors has been between 12 and 14, patient's platelets are 317 low lymphocytes. INR is 1, sodium is 131, patient's sodium has been between 136 and 130 in the past 2 years potassium is 4.5 chloride 100 CO2 is 26 BUN 20 creatinine 0.87 glucose of 101 LFTs are negative troponins less than 0.012 with a BNP of 76 and a lipase of 50. Repeat troponin is still low at 0.022 but did trend upwards. Chest x-ray shows no acute change EKG shows normal sinus rhythm with no acute ST changes appreciated. No acute or dynamic changes on repeat EKG. CTA of the chest no pulmonary embolism, no acute cardio pulmonary process. Discussed with patient little bit of atypical chest pain but patient's history is little bit concerning for potential cardiac origin would like to keep for chest pain observation. Patient did have stress test workup with Cardiology proximally year ago at that time was negative but that was performed for syncope. Spoke with Dr. Davis, telehospitalist; accepts for observation. Discharge Plan Departure Patient Disposition: Admitted as Observation Clinical Impression: Chest pain Admit Date/Time: 08/30/24 21:41 Admit Provider: Rodriguez Mishra
--- NOTE | 2024-08-30 19:07 | DI.CT.S_ITS ---
PROCEDURE: CT ANGIO CHEST PE PROTOCOL INDICATIONS: chest pain x 2 weeks, syncope 2wks ago TECHNIQUE: After the administration of intravenous contrast, 2 mm thick sections acquired from the pulmonary apices to the posterior costophrenic angles. 3-dimensional maximum intensity projection (MIP) coronal and sagittal reformats were then acquired through the thorax. For radiation dose reduction, the following was used: automated exposure control, adjustment of mA and/or kV according to patient size. COMPARISON: [facility], CR, XR CHEST 1V, 08/30/2024, 17:35. FINDINGS: Image quality: Diagnostic. Pulmonary arteries: Pulmonary arteries are normal in size, and demonstrate no intraluminal filling defects to suggest central pulmonary embolism. Lower Neck: No enlarged lymph nodes. Thyroid: No thyroid nodules which require sonographic follow up, per consensus guidelines. Axillae: No enlarged lymph nodes. Chest Wall: Unremarkable. Bones: Visualized osseous structures appear intact without acute fracture or focal destructive lesion. No acute compression fractures of the imaged spine. Lungs and Pleura: No pneumothorax or pleural effusions. No consolidation or suspicious nodules. Upper lobe predominant pulmonary emphysematous changes. Heart: Heart size is normal. No pericardial effusion. Thoracic Vessels: No aortic aneurysm. Mediastinum and Rae: No enlarged lymph nodes. Esophagus: No wall thickening. No hiatal hernia. Upper Abdomen: Visualized upper abdomen solid organs and bowel loops appear normal. IMPRESSION: No pulmonary embolus. No acute cardiopulmonary process. Dictated by: Raul Martins M.D. on 08/30/2024 at 20:57 Approved by: Raul Martins M.D. on 08/30/2024 at 21:00
--- NOTE | 2024-08-30 20:04 | EKG_ITS ---
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
[2024-08-30 20:07] LABS: Troponin I 0.022 ng/mL (0.01-0.034)
--- NOTE | 2024-08-30 22:21 | P.HP_ITS ---
History of Present Illness History of Present Illness Date Patient Seen: 08/30/24 Chief complaint: chest discomfort, syncopal event 10 days ago, TXC Narrative: 73 y/o with PMH of HTN, HLD, GERD, came to ER complaining on left- sided/substernal pain, episodic in nature, w/o radiation and w/o obvious triggers. A week ago he sustained brief syncope as he got up from sofa after he watched TV for unspecified time. He also felt short of breath with activity lately. Chest pain is not associated with nausea, diaphoresis, dizziness or dyspnea. A year ago he had additional syncopal episode and nuclear stress test that fos negative. ED workup with non-ischemic EKG, negative 1st and rising, negative 2nd troponin. Placed in observation. [facility] Medical History Rising PSA level Abdominal bloating Change in stool caliber TAPIA (dyspnea on exertion) Exercise intolerance Anxiety about health Snoring Chronic prostatitis Benign prostatic hyperplasia History of tobacco use Lower urinary tract symptoms Abnormal prostate by palpation Vaping nicotine dependence, non-tobacco product Elevated PSA Vision disorder Rosacea (~2011) Fractures Hearing loss (~1998) Cataracts, bilateral HTN (hypertension) Hyperlipidemia Neuroma of foot Bilateral foot pain Numbness and tingling of both feet Surgical History Anesthesia History of inguinal hernia repair (~1978) History of endoscopy History of colonoscopy Family History Father Liver cancer Mother Cancer Sister Cancer Grandmother CVA (cerebral vascular accident) Social History marital status: number of children: 3 household members: significant other occupational status: other Smoking Status: Current every day smoker alcohol intake: never caffeine: Yes Type(s) of exercise: walking and other frequency: daily Meds Home Medications and Allergies Home Medications Medication Instructions Recorded Confirmed Type magnesium oxide 400 mg PO DAILY 06/17/23 08/30/24 History amlodipine 5 mg tablet 5 mg PO DAILY 09/25/23 08/30/24 History lisinopril 40 mg tablet 40 mg PO DAILY #90 tabs 10/17/23 08/30/24 Rx atorvastatin 10 mg tablet 10 mg PO DAILY #90 tabs 01/08/24 08/30/24 Rx pantoprazole 20 mg tablet,delayed 20 mg PO DAILY #90 tabs 01/08/24 08/30/24 Rx release Allergies Allergy/AdvReac Type Severity Reaction Status Date / Time No Known Drug Allergies Allergy Verified 03/30/24 15:48 Review of Systems Cardiovascular Comments: see HPI Gastrointestinal Comments: w/o complaints Musculoskeletal Comments: w/o myalgia Exam Vital Signs (past 8 hours): - 08/30/24 17:24 08/30/24 18:16 08/30/24 18:30 Temperature 98.9 F Pulse Rate 86 83 75 Respiratory Rate 16 24 18 Blood Pressure 198/81 H Pulse Oximetry 97 100 100 Oxygen Delivery Method Room Air 08/30/24 18:30 08/30/24 18:44 08/30/24 18:44 Temperature Pulse Rate 82 Respiratory Rate 20 Blood Pressure 154/72 H 160/84 H Pulse Oximetry 92 94 Oxygen Delivery Method Room Air 08/30/24 19:00 08/30/24 19:00 08/30/24 19:33 Temperature Pulse Rate 82 90 Respiratory Rate 29 H 20 Blood Pressure 165/82 H Pulse Oximetry 100 97 Oxygen Delivery Method 08/30/24 19:34 08/30/24 19:34 08/30/24 20:00 Temperature Pulse Rate 80 80 Respiratory Rate 12 26 H Blood Pressure 174/79 H Pulse Oximetry 99 99 Oxygen Delivery Method 08/30/24 20:02 08/30/24 20:02 08/30/24 20:30 Temperature Pulse Rate 81 72 Respiratory Rate 29 H 18 Blood Pressure 154/68 H Pulse Oximetry 100 99 Oxygen Delivery Method 08/30/24 20:30 08/30/24 21:00 08/30/24 21:00 Temperature Pulse Rate 77 Respiratory Rate 21 Blood Pressure 140/66 130/68 Pulse Oximetry 99 Oxygen Delivery Method 08/30/24 21:32 08/30/24 21:34 08/30/24 21:34 Temperature Pulse Rate 82 83 Respiratory Rate 18 18 Blood Pressure 183/96 H Pulse Oximetry 99 99 Oxygen Delivery Method 08/30/24 21:47 08/30/24 21:47 08/30/24 22:00 Temperature Pulse Rate 80 80 Respiratory Rate 25 H 24 Blood Pressure 148/74 H Pulse Oximetry 99 98 Oxygen Delivery Method 08/30/24 22:00 Temperature Pulse Rate Respiratory Rate Blood Pressure 148/79 H Pulse Oximetry Oxygen Delivery Method Oxygen Delivery Method Room Air Const Other: in no distress HENMT Other: normocephalic Resp Other: CTA Cardio Other: RRR, w/o murmurs Neuro Other: w/o deficits Psych Other: anxious Objective ECG Impression: NSR w/o ischemic changes Labs 08/30/24 17:27 08/30/24 17:27 Labs: Laboratory Results - last 24 hr 08/30/24 08/30/24 17:27 19:35 WBC 7.1 RBC 4.77 Hgb 13.2 L Hct 39.2 L MCV 82.2 MCH 27.8 MCHC 33.8 RDW 14.3 Plt Count 317 Neut % (Auto) 62.7 Lymph % (Auto) 24.5 L [place] % (Auto) 10.7 Eos % (Auto) 1.0 L Baso % (Auto) 1.1 Neut # (Auto) 4500 Lymph # (Auto) 1700 [place] # (Auto) 800 Eos # (Auto) 100 Baso # (Auto) 100 PT 10.9 INR 1.0 APTT 37 H Sodium 131 L Potassium 4.5 Chloride 100 Carbon Dioxide 26 BUN 20 Creatinine 0.87 Estimated GFR > 60 BUN/Creatinine Ratio 23.0 H Glucose 101 Calcium 9.6 Magnesium 1.9 Total Bilirubin 0.5 AST 35 ALT 26 Alkaline Phosphatase 82 Total Creatine Kinase 128 Troponin I < 0.012 0.022 NT-Pro-B Natriuret Pep 76 Total Protein 7.5 Albumin 4.3 Globulin 3.2 Albumin/Globulin Ratio 1.3 Lipase 50 Assessment & Plan Assessment and plan (1) Chest pain: Status: Acute (2) GERD (gastroesophageal reflux disease): Qualifiers: Esophagitis presence: esophagitis presence not specified Qualified Code(s): K21.9 - Gastro-esophageal reflux disease without esophagitis Status: Acute (3) HTN (hypertension): Qualifiers: Hypertension type: primary hypertension Qualified Code(s): I10 - Essential (primary) hypertension Status: Acute (4) Hyperlipidemia: Qualifiers: Hyperlipidemia type: unspecified Qualified Code(s): E78.5 - Hyperlipidemia, unspecified Status: Acute Assessment & Plan narrative: Chest Pain - multiple risk factors, former smoker, uncontrolled HTN, HLD, A1C and lipids pending - troponins, telemetry, echocardiogram - DD - anxiety, GERD - prn NTG, Xanax HTN - uncontrolled on admission - at home on Lisinopril 40 mg and Norvasc 5 mg - continue with Lisinopril 40 mg HS, increased Norvasc to 10 mg daily, prn hydralazine HLD - lipid panel pending - statin GERD - PPI DVT prophylaxis - Lovenox Time-Based Coding :: [TOTAL MINUTES] spent with patient and on the chart (including review of chart, obtaining history, exam, reviewing outside data, placing orders, documenting exam and treatment plan, and counseling patient) on [DATE].
--- NOTE | 2024-08-30 22:21 | DI.ECHO.S_ITS ---
[facility]+ [facility] : : [address] : : [place] : : [id number] : : Phone: [phone] Echocardiogram Report + :Name: SHELLIE CABRALES Study Date: 08/31/2024 Height: 67 in : :[facility] ReadingLocation: Weight: 150 lb : : Gender: Male BSA: 1.8 m2 : :: 1950 Age: 73 yrs BP: 109/62 mmHg: :Reason For Study: CHEST PAIN : :Ordering Physician: MIRANDA : :NAYANA CHACKO Performed By: Bridget Grullon : :Referring: NAYANA TERRELL : + Interpretation Summary 1) Normal left ventricular thickness, size, wall motion, and systolic function (EF 60-65%). 2) Normal right ventricular size and function. 3) No significant valvular abnormalities. 4) Compared to the echo done 06/17/2023, no significant change. Procedure: A two-dimensional transthoracic echocardiogram with color flow and Doppler was performed. The study quality was technically adequate. Comparison is made with the echocardiogram of 06/17/2023. The patient was in sinus bradycardia with heart rates between 53-60 bpm during the exam. Left Ventricle: Proximal septal thickening is noted. The left ventricle is normal in size and wall thickness. The ejection fraction is estimated to be 60-65%. Left ventricular systolic function appears normal without focal wall motion abnormalities. Right Ventricle: The right ventricle is normal in size and function. Atria: The left atrial size is normal. Right atrial size is normal. There is no Doppler evidence for an interatrial shunt. Mitral Valve: The mitral valve leaflets appear borderline thickened, but open well. There is trace mitral regurgitation. Aortic Valve: The aortic valve is trileaflet. The aortic valve opens well. There is mild aortic valve sclerosis. There is no aortic valve stenosis. No aortic regurgitation is present. Tricuspid Valve: The tricuspid valve leaflets are thin and pliable. There is mild tricuspid regurgitation. The right ventricular systolic pressure is estimated to be at least 30 mmHg based on an estimated right atrial pressure of 3 mm Hg. Pulmonic Valve: The pulmonic valve leaflets are thin and pliable; valve motion is normal. There is trace pulmonic regurgitation. Great Vessels: The aortic root is normal size. The dimensions of the ascending aorta are normal. The IVC is of normal diameter and collapses greater than 50% with a sniff. This suggests a low right atrial pressure of 3 mm Hg. Pericardium/ Pleura There is no pericardial effusion. There is no pleural effusion. MMode/2D Measurements & Calculations LVIDd: 4.6 cm LVOT diam: 2.0 cm LVIDs: 2.9 cm Ao root diam: 3.1 cm FS: 36.4 % asc Aorta Diam: 3.0 cm IVSd: 0.98 cm Ao Arch Diam (Prox Trans): 2.3 cm LVPWd: 0.72 cm LV mejias. diameter/BSA (cm/m^2): 2.6 LV sys. diameter/BSA (cm/m^2): 1.6 LA A2 area: 15.0 cm2 RA long axis: 4.9 cm LA A4 area: 18.1 cm2 RA area: 16.2 cm2 LA length (vol): 5.0 cm RA vol: 45.0 ml LA vol: 46.1 ml RA : 25.2 ml/m2 LA vol index: 25.8 ml/m2 IVC diam: 1.8 cm RVD1 (basal): 3.6 cm RVD2 (mid): 2.3 cm TAPSE: 2.4 cm Doppler Measurements & Calculations Ao V2 max: 167.5 cm/sec LVOT Max Young: 106.7 cm/sec Ao V2 mean: 105.7 cm/sec LV V1 max P.6 mmHg Ao max P.2 mmHg LV V1 VTI: 24.0 cm Ao mean P.0 mmHg SHANICE(I,D): 2.1 cm2 Ao V2 VTI: 36.6 cm SHANICE(V,D): 2.0 cm2 sev ratio: 0.66 SHANICE indexed to BSA (cm^2/m^2): 1.2 MV E max young: 77.3 cm/sec TR max young: 260.5 cm/sec MV A max young: 61.4 cm/sec TR max P.2 mmHg MV E/A: 1.3 PA V2 max: 121.1 cm/sec Med Peak E' Young: 8.0 cm/sec PA V2 mean: 74.4 cm/sec E/E' med: 9.7 PA mean P.5 mmHg Lat Peak E' Young: 11.8 cm/sec PA pr(Accel): 15.6 mmHg E/E' lat: 6.5 E/e' average: 8.1 MV dec time: 0.20 sec SVLVOT): 75.7 ml Reading Physician:09:40 AM
[2024-08-30] MEDS: ATORVASTATIN 20 MG TABLET 10 MG PO (23:21)
[2024-08-30] MEDS: ALPRAZolam 0.25 MG TABLET PO (23:22)
[2024-08-30] MEDS: lisinopriL 20 MG TABLET 40 MG PO (23:22)
[2024-08-30] MEDS: ACETAMINOPHEN 325 MG TABLET 650 MG PO (23:23)
[2024-08-30 23:51] LABS: MRSA (Nasal) PCR NOT DETECTED (Not Detect)
[2024-08-31] VITALS: BP 169/81; PULSE 76; RESP 18; TEMP 36.2; O2SAT 100
[2024-08-31 00:10] LABS: Troponin I < 0.012 ng/mL (0.01-0.034)
[2024-08-31 04:00] VITALS: BP 108/55; PULSE 61; RESP 18; TEMP 36.4; O2SAT 100
[2024-08-31 05:21] LABS: Hemoglobin A1C% w Est Avg Glu 5.4 % (4.0-6.0)
[2024-08-31 05:30] LABS: BUN Creatinine Ratio 21.1 (6-22); Blood Urea Nitrogen 16 mg/dL (9-20); Calcium 9.3 mg/dL (8.4-10.2); Carbon Dioxide 25 mmol/L (22-32); Chloride 104 mmol/L (98-107); Cholesterol 153 mg/dL (140-199); Estimated Glomerular Filt Rate > 60 mL/min (>60); Glucose 73 mg/dL (80-110); HDL Cholesterol 66 mg/dL (40-60); HEMOLYSIS < 15 (0-50); LDL Cholesterol Calculated 70 mg/dL (<100); Sodium 134 mmol/L (137-145); Triglycerides 87 mg/dL (35-150)
--- NOTE | 2024-08-31 06:37 | PC.NURSE ---
Admit/Night Note-Patient admitted to ICU room 229 at 2210. Oriented x3, but forgetful, distractable, and somewhat impulsive. Initial BP 185/89, then 169/81, SB/SR. 40mg lisinopril given per his HS routine. Hospitalist ordered 0.25mg Xanax, and Tylenol given for 2/10 chest discomfort BP 108/55 and 109/62 in am. Uses call light for assist to BR, denies dizziness or chest pain.
[2024-08-31 08:00] VITALS: BP 109/62; PULSE 62; RESP 17; TEMP 36.5; O2SAT 94
[2024-08-31] MEDS: SODIUM CHLORIDE 0.9% FLUSH 10 ML IV (08:25)
[2024-08-31] MEDS: PANTOPRAZOLE DR 20 MG TABLET PO (08:25)
[2024-08-31] MEDS: AMLODIPINE 5 MG TABLET 10 MG PO (08:25)
[2024-08-31] MEDS: ENOXAPARIN 40 MG/0.4 ML SYRINGE SUBCUT (08:26)
--- NOTE | 2024-08-31 09:36 | CM.DANOTE ---
Addendum entered by MAURI Chavira 08/31/24 12:24: per nursing staff, plan is to dc today with OP stress test to follow SR. PAYROLL PROCESSOR messaged TCM team with updates. no further CM needs identified at this time. SL Addendum entered by MAURI Chavira 08/31/24 11:43: Per provider in morning rounds, anticipate dc later today. nursing staff will inquire if [facility] is able to do a stress test today. SR. PAYROLL PROCESSOR entered room and introduced self and role. pt kind and chatty. Denies and CM/DCP needs. Plan for home with when stable. Original Note: B DCP Assessment Note pt is a 73 yo M here with chest pain, sent by walk in clinic. reports having a brief syncopal episode a week prior. Echo completed, results pending. PCP Cachorro Murguia Payer medicare and Commercial ins SR. PAYROLL PROCESSOR reviewed EMR. Per chart review, pt was admitted June for similar concerns. he discharged home the next day with OP cardiology referral following echo. Per chart, pt lives at home indep with spouse, Mica ([phone]). no DME. P: anticipate home with spouse when medically stable. no identified barriers to safe dc home at this time. CM team will message TCM team at dc. MAURI Chavira Discharge Planning/Care Management CM Discharge Assessment Start: 08/31/24 09:35 Freq: Status: Active Protocol: Document 08/31/24 09:35 (Rec: 08/31/24 09:36 [id number]) Discharge Planning Assessment Assigned Engineering Assistant MAURI Montanez DPOA/Assigned Designee Name Mica, spouse Contact Information [phone] Advance Directives? No History Provided By Patient,Family Member,Medical Record Prior Living Arrangements Apartment/Condo Household Members significant other Type of transporation used prior to Drives own vehicle admit Independent with ADL's Yes Is patient alert and oriented? Yes Barriers to Discharge No Discharge Plan Home Transportation Arrangement in POV Referrals Initiated None needed Review Status In Process Please Provide Date Initial DC 08/31/24 Assessment Was Performed Next Review Type Continued Stay Review
--- NOTE | 2024-08-31 11:55 | PM.DS.1 ---
History of Present Illness History of Present Illness Date Patient Seen: 08/31/24 Time Patient Seen: 11:56 Chief complaint: chest discomfort, syncopal event 10 days ago, [facility] Narrative: Per admitting provider, 73 y/o with PMH of HTN, HLD, GERD, came to ER complaining on left-sided/substernal pain, episodic in nature, w/o radiation and w/o obvious triggers. A week ago he sustained brief syncope as he got up from sofa after he watched TV for unspecified time. He also felt short of breath with activity lately. Chest pain is not associated with nausea, diaphoresis, dizziness or dyspnea. A year ago he had additional syncopal episode and nuclear stress test that fos negative. ED workup with non-ischemic EKG, negative 1st and rising, negative 2nd troponin. Placed in observation. Discharge Providers Provider Date of admission: 08/30/24 21:41 Discharge Date: 08/31/24 Primary care physician: Cachorro Murguia DO Discharge provider: Trevor More DO Summary Hospital Course Discharge Diagnosis: (1) Chest pain: (2) GERD (gastroesophageal reflux disease): (3) HTN (hypertension): (4) Hyperlipidemia: 5 syncope Hospital Course: This is a 73 year old male with PMH of GERD, HTN, HLD who was admitted for further evaluation of chest pain. This did seem to start after a walk with his large dogs. Initial troponin was <0.012 while repeat was 0.022 which is still within normal limits. 3rd troponin was checked which was again negative. He had resolution of his symptoms prior to discharge. He had an echocardiogram with a normal EF and no wall motion abnormalities. He also had a low risk EKG treadmill stress test about a year prior. He was mildly hypertensive on presentation but markedly improved to low normal range prior to discharge. The patient ate breakfast, so nuclear stress testing was not available that day and due to a holiday the following day. Given atypical symptoms, normal echocardiogam, low risk treadmill testing about a year ago, and reassuring EKG with normal troponins, ACS is ruled out. Outpatient nuclear stress testing was ordered to expedite additional outpatient evaluation given his significant risk factors as soon as possible after discharge. Though given how his symptoms started musculoskeletal cause is also just as likely. He should try to schedule a visit with his primary care provider in 1-2 weeks. With regards to the patient's syncope, his symptoms were highly consistent with hypotension rather than cardiac in origin. He had previous cardiology work up after a similar event with the same conclusion at that time. He reported his hypertension medications had been increased recently. I do not recommend changes to his BP medications at this time, but advised him to watch his BP at home more closely, being sure to take his readings when he has rested for a few minutes and is in a calm environment to obtain more accurate readings. He wished to attempt to stop his amlodipine at this time, which I didn't think was unreasonable given a BP of 108/55 on these medications here. Time Spent with Patient Time spent: Greater than 30 minutes Exam Vital Signs (past 8 hours): - 08/31/24 04:00 08/31/24 08:00 Temperature 97.6 F 97.7 F Pulse Rate 61 62 Respiratory Rate 18 17 Blood Pressure 108/55 L 109/62 Pulse Oximetry 100 94 Oxygen Flow Rate 0 0 Oxygen Delivery Method Room Air Oxygen Flow Rate 0 Const Other: in no distress HENMT Other: normocephalic Resp Other: CTA Cardio Other: RRR, w/o murmurs Neuro Other: w/o deficits Psych Other: anxious Objective Labs 08/30/24 17:27 08/31/24 04:15 Labs: Laboratory Results - last 24 hr 08/30/24 08/30/24 08/30/24 17:27 19:35 22:25 WBC 7.1 RBC 4.77 Hgb 13.2 L Hct 39.2 L MCV 82.2 MCH 27.8 MCHC 33.8 RDW 14.3 Plt Count 317 Neut % (Auto) 62.7 Lymph % (Auto) 24.5 L [place] % (Auto) 10.7 Eos % (Auto) 1.0 L Baso % (Auto) 1.1 Neut # (Auto) 4500 Lymph # (Auto) 1700 [place] # (Auto) 800 Eos # (Auto) 100 Baso # (Auto) 100 PT 10.9 INR 1.0 APTT 37 H Sodium 131 L Potassium 4.5 Chloride 100 Carbon Dioxide 26 BUN 20 Creatinine 0.87 Estimated GFR > 60 BUN/Creatinine Ratio 23.0 H Glucose 101 Hemoglobin A1c Calcium 9.6 Magnesium 1.9 Total Bilirubin 0.5 AST 35 ALT 26 Alkaline Phosphatase 82 Total Creatine Kinase 128 Troponin I < 0.012 0.022 NT-Pro-B Natriuret Pep 76 Total Protein 7.5 Albumin 4.3 Globulin 3.2 Albumin/Globulin Ratio 1.3 Triglycerides Cholesterol LDL Cholesterol, Calc HDL Cholesterol Lipase 50 Nasal Screen MRSA (PCR) Not detected 08/30/24 08/31/24 23:30 04:15 WBC RBC Hgb Hct MCV MCH MCHC RDW Plt Count Neut % (Auto) Lymph % (Auto) [place] % (Auto) Eos % (Auto) Baso % (Auto) Neut # (Auto) Lymph # (Auto) [place] # (Auto) Eos # (Auto) Baso # (Auto) PT INR APTT Sodium 134 L Potassium 4.0 Chloride 104 Carbon Dioxide 25 BUN 16 Creatinine 0.76 Estimated GFR > 60 BUN/Creatinine Ratio 21.1 Glucose 73 L Hemoglobin A1c 5.4 Calcium 9.3 Magnesium Total Bilirubin AST ALT Alkaline Phosphatase Total Creatine Kinase Troponin I < 0.012 NT-Pro-B Natriuret Pep Total Protein Albumin Globulin Albumin/Globulin Ratio Triglycerides 87 Cholesterol 153 LDL Cholesterol, Calc 70 HDL Cholesterol 66 H Lipase Nasal Screen MRSA (PCR) [facility] Medical History Rising PSA level Abdominal bloating Change in stool caliber TAPIA (dyspnea on exertion) Exercise intolerance Anxiety about health Snoring Chronic prostatitis Benign prostatic hyperplasia History of tobacco use Lower urinary tract symptoms Abnormal prostate by palpation Vaping nicotine dependence, non-tobacco product Elevated PSA Vision disorder Rosacea (~2011) Fractures Hearing loss (~1998) Cataracts, bilateral HTN (hypertension) Hyperlipidemia Neuroma of foot Bilateral foot pain Numbness and tingling of both feet Surgical History Anesthesia History of inguinal hernia repair (~1978) History of endoscopy History of colonoscopy Family History Father Liver cancer Mother Cancer Sister Cancer Grandmother CVA (cerebral vascular accident) Social History marital status: number of children: 3 household members: significant other occupational status: other Smoking Status: Current every day smoker alcohol intake: never caffeine: Yes Type(s) of exercise: walking and other frequency: daily Discharge Plan Discharge Plan Patient Disposition: Home Discharge orders & Medications Prescriptions: Continued lisinopril 40 mg tablet 40 mg PO DAILY Qty: 90 3RF atorvastatin 10 mg tablet 10 mg PO DAILY Qty: 90 2RF pantoprazole 20 mg tablet,delayed release (DR/EC) 20 mg PO DAILY Qty: 90 2RF magnesium oxide 400 mg magnesium Tablet 400 mg PO DAILY Rx Instructions: alternating 1 tablet QD and BID. Discontinued amlodipine 5 mg tablet 5 mg PO DAILY Follow up/Referrals: Cachorro Murguia, [Primary Care Provider] - Other Ambulatory Orders: NM bert perf SPECT rest & str (Routine) Facility: [facility] - Location: Radiology Ordered By: Trevor More Diet/Activity/Treatments Diet: Diet as Tolerated and Regular Activity: As tolerated no restrictions Visit Report/Discharge Packet Stand Alone Forms: Patient Portal/API, Stroke Signs & Symptoms Discharge Data Primary Care Provider: Cachorro Murguia Attending Provider: Rodriguez Mishra Admit Date/Time: 08/30/24 21:41 Quality VTE Deep Vein Thrombosis/Pulmonary Embolism Present on Admission: No
[2024-08-31 12:00] VITALS: BP 123/88; PULSE 64; RESP 23; TEMP 37.1; O2SAT 99
--- NOTE | 2024-08-31 13:35 | PC.NURSE ---
Discharge Note Patient A&O, VSS, RA, no complaints of pain/discomfort. Discharge packet reviewed with patient, all questions/concerns addressed. PIV/TELE discontinued. Patient able to dress self and pack all belongings. Patient taken via wheelchair to POV.
== END 2024-08-31 13:00 | disposition home or self-care (01) ==
LOC: ED 21:42 → AC 21:42 → ICU 22:09
PROVIDERS: Emergency Medicine; Admitting Provider Internal Medicine; Emergency Provider Emergency Medicine; PCP Family Medicine; Referring Provider Emergency Medicine; Visit Provider Internal Medicine
DX: R07.9 Chest pain, unspecified (principal); K21.9 Gastro-esophageal reflux disease without esophagitis; I10 Essential (primary) hypertension; E78.5 Hyperlipidemia, unspecified; F17.210 Nicotine dependence, cigarettes, uncomplicated
CPT/HCPCS: 36415; 71045; 71275; 80048; 80053; 80061; 82550; 83036; 83690; 83735; 83880; 84484; 85025; 85610; 85730; 87797; 93005; 93306; 96372; 99284; G0378; J1650; Q9967

== ENCOUNTER → 2024-09-22 09:03 | Outpatient (CLI) | payer MEDICARE, OTHER, SELFPAY ==
[2024-09-02 14:19] VITALS: BMI 23.5
--- NOTE | 2024-09-22 09:04 | DI.NM.S_ITS ---
PROCEDURE: NM ARNALDO PERF SPECT REST & STR Rest and exercise myocardial perfusion SPECT with gated imaging and ejection fraction RADIOPHARMACEUTICAL: 12.4 mCi Tc-99m sestamibi IV at rest and 24.9 mCi Tc-99m sestamibi IV at peak exercise. A one day-protocol was performed. INDICATIONS: CHEST DISCOMFORT TECHNIQUE: Radiopharmaceutical was injected at peak stress test, and also at rest. SPECT images were obtained. SPECT myocardial perfusion images were displayed in short axis, horizontal long axis, and vertical long axis views. Gated images were reviewed using [employer] software. COMPARISON: None. CARDIAC STRESS: A standard Zeke treadmill exercise tolerance test was performed by the patient under the supervision of an attending staff. The patient exercised for 9 minutes and 30 seconds; functional aerobic impairment (RASHARD) is -43%. Hemodynamic data: There is normal blood pressure and heart rate response to exercise stress. Patient achieved 94% of maximum predicted heart rate at peak exercise. Symptoms: Patient had fleeting chest pain that appeared related to ectopy. No angina during exercise. EKG: No diagnostic EKG changes of ischemia; rare PACs and rare PVCs present. FINDINGS: Raw data: There is good myocardial labeling by radiotracer. No significant motion artifacts. Left ventricle function: Gated images demonstrate normal left ventricle wall thickening. No segmental wall motion abnormality. No transient ischemic dilation; TID is 0.87 (normal less than 1.3). The left ventricle resting end-diastolic volume is 107 mL. Left ventricle stress ejection fraction is 79%; normal values are above 45%. Myocardial perfusion: Mildly intense fixed inferior wall defect that resolves with prone imaging, suggesting attenuation artifact. No ischemia or infarction present. IMPRESSION: Low risk, normal treadmill nuclear stress test from ischemia standpoint. 1) Mildly intense fixed inferior wall defect that resolves with prone imaging, suggesting attenuation artifact. No ischemia or infarction present. 2) Normal left ventricular size, wall motion, and systolic function (EF post stress 79%). 3) No angina during the study. 4) No diagnostic ST changes during exercise or recovery. 5) Excellent exercise tolerance (10.1METs, RASHARD -43%). Target heart rate reached. Appropriate BP response to exercise. 6) No prior nuclear stress test available for comparison. Dictated by: Yogi Lu MD on 09/22/2024 at 17:09 Approved by: Yogi Lu MD on 09/22/2024 at 17:15
== END ==
PROVIDERS: PCP Family Medicine; Referring Provider Family Medicine; Visit Provider Family Medicine
DX: R07.9 Chest pain, unspecified (principal)
CPT/HCPCS: 78452; 93017; A9502

== ENCOUNTER → 2024-09-30 16:29 | Outpatient (CLI) | payer MEDICARE, OTHER, SELFPAY ==
[2024-09-02 14:19] VITALS: BMI 23.5
== END ==
LOC: LAB 16:30
PROVIDERS: PCP Family Medicine; Referring Provider Urology; Visit Provider Urology
DX: R97.20 Elevated prostate specific antigen [PSA] (principal)
CPT/HCPCS: 36415; 84153; 84154

== ENCOUNTER → 2025-01-18 14:38 | Outpatient (CLI) | payer MEDICARE, OTHER, SELFPAY ==
[2024-09-02 14:19] VITALS: BMI 23.5
[2025-01-20 07:09] LABS: PSA Free % 24.7 % (.); PSA, Total 7.6 ng/mL (0.0-4.0)
== END ==
PROVIDERS: Urology; PCP Family Medicine; Referring Provider Family Medicine; Visit Provider Family Medicine
DX: R97.20 Elevated prostate specific antigen [PSA] (principal)
CPT/HCPCS: 36415; 84153; 84154

== ENCOUNTER → 2025-02-04 14:36 | Outpatient (CLI) | payer MEDICARE, OTHER, SELFPAY ==
[2024-09-02 14:19] VITALS: BMI 23.5
== END ==
PROVIDERS: PCP Family Medicine; Visit Provider Urology
DX: R39.9 Unspecified symptoms and signs involving the genitourinary system (principal)
CPT/HCPCS: 87086

== ENCOUNTER → 2025-07-26 15:32 | Outpatient (CLI) | payer MEDICARE, OTHER, SELFPAY ==
[2024-09-02 14:19] VITALS: BMI 23.5
[2025-07-28 08:11] LABS: PSA, Total 6.8 ng/mL (0.0-4.0)
== END ==
PROVIDERS: PCP Family Medicine; Referring Provider Urology; Visit Provider Urology
DX: R97.20 Elevated prostate specific antigen [PSA] (principal)
CPT/HCPCS: 84153; 84154